=== PATIENT | female | born 1970 | race Caucasian/White ===

== ENCOUNTER → 2020-08-02 16:09 | Outpatient (BNVA) | payer OTHER, SELFPAY | PROVIDERS: PCP Physician Assistant; Referring Provider Physician Assistant; Visit Provider Nurse Practitioner | DX: K58.2 Mixed irritable bowel syndrome (principal); K51.20 Ulcerative (chronic) proctitis without complications; K22.70 Barrett's esophagus without dysplasia; R11.2 Nausea with vomiting, unspecified; Z79.899 Other long term (current) drug therapy; Z86.010 Personal history of colon polyps | CPT/HCPCS: 99212 ==

== ENCOUNTER → 2020-09-12 11:51 | Outpatient (BNVA) | payer OTHER, SELFPAY | PROVIDERS: PCP Physician Assistant; Visit Provider Nurse Practitioner | DX: Z76.89 Persons encountering health services in other specified circumstances (principal) ==

== ENCOUNTER 2020-09-16 15:47 | Emergency (ER) | payer OTHER, SELFPAY ==
[2020-09-16 17:36] VITALS: BP 122/88; PULSE 133; RESP 17; TEMP 36.9; O2SAT 95; BMI 26.4
--- NOTE | 2020-09-16 17:47 | ED_ITS ---
HPI - General Adult General Chief complaint: General Medical Stated complaint: MULTIPLE COMPLAINTS Time Seen by Provider: 09/16/20 18:57 Source: patient Mode of arrival: ambulatory Limitations: no limitations History of Present Illness HPI narrative: 50-year-old female presents with multiple complaints, has a history of Samuels's, ulcerative proctitis, IBS with constipation and diarrhea presents with left-sided headache and a shooting nerve pain, left ear pain, and anxiety. She has had similar episodes of this particular kind of pain, states that the only thing that works for her is prednisone and amoxicillin. She is very anxious, she believes that she is concerned about deep inner ear infection or abscess. She does have an ENT in [facility], has not been able to see them due to COVID-19 restrictions. She does not report any fevers, chills, loss of balance, changes in vision, loss of hearing, chest pain or pressure, palpitations, shortness of breath, abdominal pain, abdominal distention, dysuria, hematuria, or edema. Onset (ago): week(s) Location: head and face Radiation: other (Radiates from her head, left eye, left ear, left neck) Severity: severe Severity scale (1-10): 10 Quality: burning, aching and constant Pain Consistency: constant Relieving factors: none Associated symptoms: denies other symptoms Treatments prior to arrival: NSAID Related Data Home Medications Medication Instructions Recorded Confirmed sucralfate 1 gram tablet 2 g PO .Q.d. tab 08/01/20 08/01/20 bupropion HCl 100 mg tablet,12 hr 100 mg PO QAM 09/04/20 sustained-release clonazepam 1 mg tablet 1 mg PO BEDTIME PRN 09/04/20 promethazine 25 mg tablet mg PO 09/04/20 propranolol 60 mg capsule,24 60 mg PO DAILY 09/04/20 hr,extended release Previous Rx's Medication Instructions Recorded ondansetron HCl 4 mg tablet 4 mg PO BID-TID PRN 30 Days #60 tab 08/02/20 pantoprazole 40 mg tablet,delayed 40 mg PO BID 90 Days #180 tab 08/02/20 release amoxicillin 500 mg capsule 500 mg PO Q8H 7 Days #21 cap 08/20/20 ofloxacin 0.3 % ear drops 10 drp OTIC (EARS) BID 14 Days #10 12/01/20 ml prednisone 10 mg tablet 10 mg PO DAILY 9 Days #18 tab 09/04/20 amoxicillin-pot clavulanate 1 tab PO Q12H 5 Days #10 tab 09/16/20 [Augmentin] prednisone 40 mg PO DAILY 6 Days #12 tab 09/16/20 Allergies Allergy/AdvReac Type Severity Reaction Status Date / Time Sulfa (Sulfonamide Allergy Unknown COLITIS, Verified 09/12/20 11:52 Antibiotics) stomach [SULFA (SULFONAMIDE upset, ANTIBIOTICS)] stomach upset lorazepam [From ATIVAN] AdvReac Unknown AGITATION Verified 09/12/20 11:52 Review of Systems Review of Systems: Constitutional: No Fever, No Chills ENT/Mouth: Positive left Ear Pain, No Hoarseness, No sore throat Eyes: Positive left Eye Pain, No Swelling, No Redness, No Foreign Body Cardiovascular: No Chest Pain, No SOB Respiratory: No Cough, No Dyspnea Gastrointestinal: No Nausea, No Vomiting, No Diarrhea, No abdominal Pain Genitourinary: No Dysuria, No Hematuria Musculoskeletal: positive left neck pain, No Myalgias, No Joint Swelling Skin: No Skin lacerations, No rash Neuro: No Weakness, No Numbness, No Paresthesias, No Loss of Consciousness, No Dizziness, No Headache Psych: Positive Anxiety/Panic, No Depression Heme/Lymph: no easy bruising, no Lymphadenopathy Endocrine: No Polyuria, No Polydipsia Yes all other systems are reviewed and are negative [facility] Past Medical History Attestation statement: The following information was validated with the patient. Medical History (Updated 09/16/20 @ 19:32 by Kaci Roman NP) GERD (gastroesophageal reflux disease) Surgical History History of esophagogastroduodenoscopy (EGD) Hx of colonoscopy Family History Family History Father Hernia Mother Blood infection Hernia Sister Hernia Social History Social History Household Members: Other Housing: Apartment Alcohol intake: current Alcohol intake frequency: holidays/special occasions only Alcohol type: wine Smoking Status: Light tobacco smoker Tobacco Type: E-Cigarette Use of substances other than those prescribed or required for medical reasons: No Substance Use Type: Marijuana Advance Directives: No Advance Directives Information Provided: No Physical Exam Vital Signs: Vital Signs: Last Vital Signs Temp 98.4 F 09/16/20 17:36 Pulse 133 H 09/16/20 17:36 Resp 17 09/16/20 17:36 BP 122/88 09/16/20 17:36 Pulse Ox 95 09/16/20 17:36 Body Mass Index 26.4 Appearance: Alert. Oriented X3. No acute distress. Eyes: Pupils equal, round and reactive to light. ENT: Pharynx normal. Neck: Normal inspection. Neck supple. CVS: Normal heart rate and rhythm. Pulses normal. Respiratory: No respiratory distress. Breath sounds normal. Abdomen: Soft and nontender. Skin: Skin warm and dry. Normal skin color. Normal skin turgor. Extremities: No lower extremity edema. Neuro: No motor deficit. No sensory deficit. NIH Stroke Scale Level of Consciousness: Alert Level of Consciousness Questions: Answers both questions correctly Level of Consciousness Commands: Performs both tasks correctly Best Gaze: Normal Visual: No visual loss Facial Palsy: Normal Motor Arm (Right): No drift Motor Arm (Left): No drift Motor Leg (Right): No drift Motor Leg (Left): No drift Limb Ataxia: Absent Sensory: Normal Best Language: No aphasia Dysarthia: Normal Extinction and Inattention: No abnormality Score: 0 Course Course Course Narrative: 50-year-old female presents with left-sided headache, left eye pain, left neck pain, left ear pain, visibly anxious, speaking in abrupt manner, needs multiple redirections to answer the questions at hand. Does report to smoking cigarettes and drinking several nips of whiskey prior to arrival. Patient does not want any medications, reports multiple sensitivities to almost everything on the market , does not want blood drawn at this time because she is getting blood drawn by her paper sales representative on Thursday. We will order CT scan of the head, give prednisone and Augmentin. CT scan of head is negative for acute findings requiring emergent intervention, patient demanding to leave at this time. Patient verbalized understanding of and agrees to plan of care to discharge home. Medical Decision Making Differential Diagnosis Differential Diagnosis: Acute otitis media, trigeminal neuralgia, migraine Medical Records Medical records reviewed: Yes I reviewed the patient's medical records. Imaging Data CT scan - head: Attestation: I personally reviewed and interpreted this imaging study as follows: Radiologist's impression: EXAMINATION: CT HEAD WITHOUT CONTRAST CLINICAL INFORMATION: Head and left ear pain. COMPARISON: None TECHNIQUE: Contiguous axial imaging was performed from the skull base to vertex without intravenous administration of contrast. This CT examination was performed using dose optimization techniques as appropriate, variously including the following: *Automated exposure control *Adjustment of mA and/or kV according to patient size (this includes techniques or standardized protocols for targeted exams where dose is matched to indication/reason for exam; i.e. extremities or head) *Use of iterative reconstruction technique DLP: 679 mGy-cm FINDINGS: There is no evidence of acute intracranial hemorrhage or territorial infarction. No abnormal mass effect or midline shift is seen. Whitaker to white matter differentiation is well preserved. No extra-axial fluid collections are identified. The ventricles are normal in size. There is no abnormal attenuation within the brain parenchyma. The osseous structures and soft tissues are normal. The mastoid air cells and visualized portions of the paranasal sinuses are well aerated. CT/CT head/brain wo con IMPRESSION: No acute intracranial hemorrhage or mass effect. Discharge Plan Discharge Clinical Impression: Otitis media Qualifiers: Otitis media type: unspecified Chronicity: chronic Qualified Code(s): H66.90 - Otitis media, unspecified, unspecified ear Patient Disposition: Home, Self-Care Instructions: Ear Infection (ED) Additional Instructions: You were evaluated for headache and ear pain. Your CT scan of the head is negative for acute findings requiring emergent intervention. We are treating you for an ear infection. Please follow-up the primary care physician and your paper sales representative as scheduled. Thank you for choosing this emergency department for evaluation. Please follow-up with primary care physician as needed. Return to the emergency department for any new, concerning, or worsening symptoms. Prescriptions: New prednisone 20 mg tablet 40 mg PO DAILY 6 Days Qty: 12 RF: 0 amoxicillin-pot clavulanate [Augmentin] 875-125 mg tablet 1 tab PO Q12H 5 Days Qty: 10 RF: 0 No Action amoxicillin 500 mg capsule 500 mg PO Q8H 7 Days Qty: 21 RF: 0 ofloxacin 0.3 % drops 10 drp otic (ears) BID 14 Days Qty: 10 RF: 0 prednisone 10 mg tablet 10 mg PO DAILY 9 Days Qty: 18 RF: 0 sucralfate [Carafate] 1 gram tablet 2 g PO .Q.d. RF: 0 pantoprazole 40 mg tablet,delayed release (DR/EC) 40 mg PO BID 90 Days Qty: 180 RF: 1 ondansetron HCl [Zofran] 4 mg tablet 4 mg PO BID-TID PRN (Reason: nausea and vomiting) 30 Days Qty: 60 RF: 3 Interventions: ED Discharge Assessment Last Done: 09/16/20 19:40 Discharge Date/Time: 09/16/20 19:40
[2020-09-16] MEDS: Amoxicillin/Potassium Clav 875 MG TABLET PO (18:12)
[2020-09-16] MEDS: predniSONE 20 MG TABLET 60 MG PO (18:13)
== END 2020-09-16 19:40 | disposition home or self-care (01) ==
PROVIDERS: Emergency Provider Internal Medicine; PCP Physician Assistant
DX: H66.92 Otitis media, unspecified, left ear (principal); M54.2 Cervicalgia; F17.200 Nicotine dependence, unspecified, uncomplicated; Z79.899 Other long term (current) drug therapy; Z71.6 Tobacco abuse counseling
CPT/HCPCS: 70450; 99283; 99284

== ENCOUNTER → 2020-11-26 14:53 | Outpatient (BNVA) | payer OTHER, SELFPAY | PROVIDERS: PCP Physician Assistant; Visit Provider Nurse Practitioner ==

== ENCOUNTER 2021-02-05 09:20 | Outpatient (REF) | payer OTHER, SELFPAY ==
[2021-02-05 15:43] LABS: CT PCR NOT DETECTED (Not Detect.); NG PCR NOT DETECTED (Not Detect.)
[2021-02-06 11:11] LABS: BV Int Neg Control Negative (Negative); BV Int Pos Control Positive (Positive)
== END 2021-02-05 09:21 | disposition home or self-care (01) ==
LOC: HO.LAB 09:20
PROVIDERS: PCP Physician Assistant; Visit Provider Advanced Practice Midwife
DX: Z11.3 Encounter for screening for infections with a predominantly sexual mode of transmission (principal); R10.2 Pelvic and perineal pain
CPT/HCPCS: 81003; 87480; 87491; 87510; 87591; 87660; 99212

== ENCOUNTER 2021-02-14 14:59 | Outpatient (REF) | payer OTHER, SELFPAY ==
--- NOTE | ~2021-02-14 | US_ITS ---
EXAMINATION: PELVIC ULTRASOUND CLINICAL INFORMATION: Pain. History of left oophorectomy COMPARISON: Previous CT of the abdomen and pelvis August 2017 TECHNIQUE: Transabdominal and transvaginal pelvic ultrasound. Transvaginal exam was performed for better visualization of the uterus and ovaries. FINDINGS: The uterus is anteverted and measures 5.8 x 2.2 x 3.7 cm in dimension. No focal uterine lesion is seen. Endometrial thickness is normal measuring 0.4 cm. There is a nabothian cyst in the cervix. The right ovary is normal-appearing and measures 2.3 x 1 x 1.4 cm. Left ovary has been removed. There is trace fluid in the pelvis. Additional imaging of the right upper quadrant was performed. Migrated IUD is seen adjacent to the right lobe of the liver and right kidney. US/US pelvic and transvaginal IMPRESSION: Unremarkable uterus and right ovary. IUD seen in the right upper quadrant adjacent to the right lobe of the liver and right kidney.
[2021-02-21 07:49] LABS: Prometheus TPMT Genetics SEE SEPARATE REPORT
== END 2021-02-14 15:00 | disposition home or self-care (01) ==
LOC: HO.US 14:59
PROVIDERS: Nurse Practitioner; Visit Provider Advanced Practice Midwife
DX: R10.2 Pelvic and perineal pain (principal); K51.20 Ulcerative (chronic) proctitis without complications
CPT/HCPCS: 36415; 76830; 76856; 81335

== ENCOUNTER → 2021-02-20 12:17 | Outpatient (BNVA) | payer OTHER, SELFPAY | PROVIDERS: Visit Provider Advanced Practice Midwife ==

== ENCOUNTER 2021-03-14 11:23 | Outpatient (REF) | payer OTHER, SELFPAY ==
--- NOTE | ~2021-03-14 | MM_ITS ---
EXAMINATION: MM SCREENING DIGITAL BREAST TOMOSYNTHESIS, BILATERAL CLINICAL INFORMATION: Screening. Asymptomatic. The lifetime risk of breast cancer based on the Tyrer-Cuzick Model is 6.9%. COMPARISON: Mammography: Bilateral TECHNIQUE: Digital breast tomosynthesis is performed in both the craniocaudal and mediolateral oblique views along with computer-aided detection (CAD). Synthesized 2D images are generated from the tomosynthesis. FINDINGS: There are scattered areas of fibroglandular density (ACR BI-RADS breast composition Category b). There are no significant masses, abnormal calcifications, or other abnormalities. MM/MM tomosynthesis screening BI IMPRESSION: There are no significant changes from prior study. ASSESSMENT: BI-RADS 1: Negative RECOMMENDATION: Routine annual mammography screening. This patient's information was entered into a reminder system with a target due date for their next mammogram.
== END 2021-03-14 11:24 | disposition home or self-care (01) ==
LOC: HO.MAMMO 11:23
PROVIDERS: Visit Provider Physician Assistant
DX: R55 Syncope and collapse (principal); R00.0 Tachycardia, unspecified; Z12.31 Encounter for screening mammogram for malignant neoplasm of breast
CPT/HCPCS: 77063; 77067; 93005; 99212

== ENCOUNTER → 2021-03-26 11:34 | Outpatient (BNVA) | payer OTHER, SELFPAY | PROVIDERS: PCP Physician Assistant; Visit Provider Nurse Practitioner ==

== ENCOUNTER → 2021-04-17 14:07 | Outpatient (BNVA) | payer OTHER, SELFPAY | PROVIDERS: PCP Physician Assistant; Visit Provider Anesthesiology | DX: G50.0 Trigeminal neuralgia (principal) | CPT/HCPCS: 99202 ==

== ENCOUNTER 2021-04-26 15:00 | Outpatient (REF) | payer OTHER, SELFPAY ==
[2021-04-26 16:00] LABS: Hematocrit 46.2 % (37-47); Hemoglobin 15.6 g/dl (12.0-16.0); Mean Corpuscular HGB Conc 33.8 g/dl (31.0-35.0); Mean Corpuscular Hemoglobin 33.1 pg (27.0-33.0); Mean Corpuscular Volume 97.9 fL (80-98); Mean Platelet Volume 9.7 fL (9.4-12.3); Platelet Count 292 X10*3/uL (160-400); Red Blood Count 4.72 X10*6/uL (4.20-5.50); Red Cell Distribution Width 12.7 % (11.0-16.0); White Blood Count 5.1 X10*3/uL (4.8-10.8)
[2021-04-26 16:13] LABS: Alanine Aminotransferase 13 U/L (0-31); Albumin Level 4.3 g/dL (3.5-5.0); Alkaline Phosphatase 89 U/L (39-117); Anion Gap 15 (12-20); Aspartate Amino Transferase 19 U/L (5-31); Bilirubin Total 0.4 mg/dL (0.0-1.0); Blood Urea Nitrogen 11 mg/dL (9-16); Calcium 9.2 mg/dL (8.4-10.2); Carbon Dioxide 25 mmol/L (22-29); Chloride 104 mmol/L (96-108); Cholesterol 301 mg/dL; Estimated Glomerular Filt Rate > 60; Glucose Fasting 100 mg/dL (60-99); HDL Cholesterol 70 mg/dL; LDL Cholesterol Calculated 213 mg/dl; Potassium 4.2 mmol/L (3.3-5.1); Sodium 140 mmol/L (135-145); Triglycerides 91 mg/dL
[2021-04-26 16:33] LABS: TSH reflex Free T4 1.87 uIU/mL (0.32-4.0)
== END 2021-04-26 15:01 | disposition home or self-care (01) ==
LOC: HO.LAB 15:00
PROVIDERS: Absent Provider Physician Assistant; PCP Physician Assistant; Visit Provider Nurse Practitioner
DX: Z13.29 Encounter for screening for other suspected endocrine disorder (principal); K51.20 Ulcerative (chronic) proctitis without complications; G50.0 Trigeminal neuralgia; I10 Essential (primary) hypertension
CPT/HCPCS: 36415; 80053; 80061; 80299; 84443; 85027

== ENCOUNTER → 2021-05-13 10:14 | Outpatient (BNVA) | payer OTHER, SELFPAY | PROVIDERS: PCP Physician Assistant; Visit Provider Nurse Practitioner ==

== ENCOUNTER → 2021-07-30 09:05 | Outpatient (BNVA) | payer OTHER, SELFPAY | PROVIDERS: PCP Physician Assistant; Visit Provider Dietitian, Registered | DX: E78.5 Hyperlipidemia, unspecified (principal) | CPT/HCPCS: 97802 ==

== ENCOUNTER 2021-08-20 11:35 | Outpatient (REF) | payer OTHER, SELFPAY ==
[2021-08-27 06:29] LABS: Prometheus TPMT Enzyme SEE SEPARATE REPORT
== END 2021-08-20 11:36 | disposition home or self-care (01) ==
LOC: HO.LAB 11:35
PROVIDERS: PCP Physician Assistant; Visit Provider Nurse Practitioner
DX: K51.20 Ulcerative (chronic) proctitis without complications (principal)
CPT/HCPCS: 36415

== ENCOUNTER → 2021-08-27 15:58 | Outpatient (BNVA) | payer OTHER, SELFPAY | PROVIDERS: PCP Physician Assistant; Referring Provider Physician Assistant; Visit Provider Nurse Practitioner ==

== ENCOUNTER 2021-11-06 14:51 | Outpatient (REF) | payer OTHER, SELFPAY ==
--- NOTE | ~2021-11-06 | XR_ITS ---
EXAMINATION: XR HIP, LEFT CLINICAL INFORMATION: Pain. COMPARISON: None TECHNIQUE: Two views of the left hip. FINDINGS: The left hip joint space is maintained normal. No bony erosive changes. There are no loose bodies. There are small intramedullary sclerotic densities along left proximal femur. The soft tissues are normal. XR/XR hip LT min 2V IMPRESSION: No acute fracture or dislocation left hip. Sclerotic densities seen a left proximal femur. Sclerotic density is also seen in the pelvis, right proximal femur on CT abdomen abdomen exam 12/19/2019, question multiple bone islands versus metastatic disease. Recommend bone scan for further evaluation..
[2021-11-06 15:55] LABS: Hematocrit 44.9 % (37.0-47.0); Hemoglobin 15.3 g/dl (12.0-16.0); Mean Corpuscular HGB Conc 34.1 g/dl (31.0-35.0); Mean Corpuscular Hemoglobin 31.9 pg (27.0-33.0); Mean Corpuscular Volume 93.5 fL (80.0-98.0); Mean Platelet Volume 9.7 fL (9.4-12.3); Platelet Count 306 X10*3/uL (160-400); Red Cell Distribution Width 13.9 % (11.0-16.0); White Blood Count 6.2 X10*3/uL (4.8-10.8)
[2021-11-06 15:59] LABS: Estimated Average Glucose 94 mg/dL; Hemoglobin A1c % 4.9 %
[2021-11-06 16:13] LABS: Alanine Aminotransferase 8 U/L (0-31); Albumin Level 4.4 g/dL (3.5-5.0); Alkaline Phosphatase 72 U/L (39-117); Anion Gap 12 (12-20); Aspartate Amino Transferase 12 U/L (5-31); Bilirubin Total 0.7 mg/dL (0.0-1.0); Blood Urea Nitrogen 17 mg/dL (9-16); Calcium 9.8 mg/dL (8.4-10.2); Carbon Dioxide 28 mmol/L (22-29); Chloride 105 mmol/L (96-108); Cholesterol 269 mg/dL; Estimated Glomerular Filt Rate > 60; Glucose Fasting 108 mg/dL (60-99); HDL Cholesterol 45 mg/dL; LDL Cholesterol Calculated 193 mg/dl; Sodium 141 mmol/L (135-145); Triglycerides 157 mg/dL
[2021-11-06 16:33] LABS: TSH reflex Free T4 1.79 uIU/mL (0.32-4.0)
[2021-11-06 16:42] LABS: Carbamazepine Tegretol 9.2 mcg/mL (5.0-12.0)
== END 2021-11-06 14:52 | disposition home or self-care (01) ==
LOC: HO.XRAY 14:51
PROVIDERS: Absent Provider Nurse Practitioner; PCP Physician Assistant; Visit Provider Physician Assistant
DX: Z13.29 Encounter for screening for other suspected endocrine disorder (principal); G50.0 Trigeminal neuralgia; E78.2 Mixed hyperlipidemia; M25.552 Pain in left hip
CPT/HCPCS: 36415; 73502; 80053; 80061; 80156; 83036; 84443; 85027

== ENCOUNTER → 2021-11-14 07:48 | Outpatient (BNVA) | payer OTHER, SELFPAY | PROVIDERS: PCP Physician Assistant; Referring Provider Physician Assistant; Visit Provider Nurse Practitioner | DX: K58.2 Mixed irritable bowel syndrome (principal); K51.20 Ulcerative (chronic) proctitis without complications; K22.70 Barrett's esophagus without dysplasia; R11.2 Nausea with vomiting, unspecified | CPT/HCPCS: 99212 ==

== ENCOUNTER → 2021-11-22 11:01 | Outpatient (REF) | payer OTHER, SELFPAY ==
--- NOTE | ~2021-11-22 | NM_ITS ---
EXAMINATION: NM BONE SCAN OF THE WHOLE BODY CLINICAL INFORMATION: Disorder of bone, unspecified. Sclerotic density seen in the pelvis and proximal left femur on recent radiographs. COMPARISON: No previous bone scan is available for comparison. Radiographs of the left hip dated 11/06/2021 are available for comparison. The diagnostic CT scan of the abdomen and pelvis, dated 09/03/2017, is available for comparison. CT scan of the head dated 09/16/2020 is also available for comparison. TECHNIQUE: Multiple gamma scintillation camera images of the whole body were performed 11/21/2021 hours following the intravenous administration of 20 mCi Tc-99m MDP. FINDINGS: In the head, there is a mild diffuse increase in activity in the calvarium without a focal component. In the thoracic cage and upper extremities, faint foci of increased activity are present in the posterolateral aspects of adjacent regions of the right ninth and 10th ribs in the anterolateral aspect of the right seventh rib. In the spine, a mild thoracolumbar scoliosis is present with lumbar convexity to the left. There is mildly increased activity bilaterally in the posterior elements at L4-L5. In the pelvis, no significant abnormalities are present. In the lower extremities, there is mildly increased activity in the medial compartment of the right knee and there is minimally increased activity in the left greater femoral trochanter. No other definite bony abnormalities are noted. The urinary bladder and faint visualization of both kidneys are noted. Radiographs of the left hip dated 11/06/2021 show several sclerotic foci in the proximal shaft of the left femur and in addition, the CT scan dated 12/19/2019 which is not extend inferiorly to the previously described radiographic sclerotic foci shows additional sclerotic foci in the proximal right femur and in multiple foci in the pelvis, all subcentimeter in size. There are no corresponding abnormalities on this current radionuclide bone scan at any of these sites. There is also mild facet arthropathy at L4-L5 corresponds to bone scan abnormalities described above. NM/NM bone scan whole body IMPRESSION: 1. No abnormalities suspicious for metastatic disease are present on this bone scan. There are no corresponding abnormalities in the femurs or pelvis to sclerotic foci visualized on recent radiographs and 12/19/2019 CT scan of the abdomen and pelvis. 2. There is some mild diffusely increased activity in the calvarium which suggests early Paget's disease of bone. There are no abnormalities in the calvarium on the 09/16/2020 PET/CT scan to suggest Paget's disease, however. No other abnormalities suspicious for Paget's disease are present at any site. 3. A few additional mild nonspecific abnormalities are noted as described above and these are all likely arthritic or traumatic in etiology. None of these abnormalities is strongly suspicious for metastatic disease.
== END ==
LOC: HO.NUCMED 11:01
PROVIDERS: PCP Physician Assistant; Visit Provider Physician Assistant
DX: M89.9 Disorder of bone, unspecified (principal)
CPT/HCPCS: 78306; A9503

== ENCOUNTER → 2021-12-05 07:16 | Outpatient (BNVA) | payer OTHER, SELFPAY | PROVIDERS: PCP Physician Assistant; Referring Provider Physician Assistant; Visit Provider Nurse Practitioner | DX: K51.20 Ulcerative (chronic) proctitis without complications (principal); K58.2 Mixed irritable bowel syndrome; K30 Functional dyspepsia; R11.2 Nausea with vomiting, unspecified | CPT/HCPCS: 99212 ==

== ENCOUNTER 2021-12-06 13:59 | Outpatient (REF) | payer OTHER, SELFPAY ==
[2021-12-10 15:36] LABS: Alkaline Phosphatase Bone 12.2 mcg/L (5.6-29.0)
[2021-12-11 09:20] LABS: Calcium (PTHI) 9.4 mg/dL (8.6-10.4); PTHI 50 pg/mL (14-64)
== END 2021-12-06 14:00 | disposition home or self-care (01) ==
LOC: HO.LAB 13:59
PROVIDERS: Nurse Practitioner; PCP Physician Assistant; Visit Provider Physician Assistant
DX: M89.9 Disorder of bone, unspecified (principal); K51.20 Ulcerative (chronic) proctitis without complications; Z79.899 Other long term (current) drug therapy
CPT/HCPCS: 36415; 80299; 83970; 84075

== ENCOUNTER 2021-12-10 14:33 | Outpatient (REF) | payer OTHER, SELFPAY ==
--- NOTE | ~2021-12-10 | US_ITS ---
EXAMINATION: US ABDOMEN COMPLETE CLINICAL INFORMATION: Displacement of intrauterine contraceptive device. Right upper quadrant pain. COMPARISON: Pelvic ultrasound 02/14/2021. CT abdomen and pelvis 12/19/2019. TECHNIQUE: Real-time imaging of the abdominal viscera. FINDINGS: PANCREAS: Normal. ABDOMINAL AORTA: The proximal, mid, and distal segments are normal in caliber. INFERIOR VENA CAVA: Visualized portions are normal. LIVER: Normal. The liver is normal in size. The liver contour is normal. Parenchymal echogenicity is normal. No focal hepatic lesion. There is no intrahepatic biliary duct dilatation seen. GALLBLADDER: The gallbladder is mildly contracted, likely due to the patient's nonfasting state. The gallbladder is without evidence of stones, sludge, polyps, wall thickening or pericholecystic fluid. COMMON BILE DUCT: Normal in caliber measuring 0.4 cm in diameter. RIGHT KIDNEY: Normal. No hydronephrosis. No renal calculi or focal parenchymal lesions. The kidney measures 10.2 cm in maximum dimension. LEFT KIDNEY: There is a simple appearing exophytic cyst in the upper pole measuring 2.2 cm. There is a simple appearing parapelvic cyst in the mid polar region measuring 2.8 cm No hydronephrosis or renal calculi. The kidney measures 10.8 cm in maximum dimension. SPLEEN: Normal. The spleen measures 8.6 cm in maximum dimension. FREE FLUID: None. ADDITIONAL FINDINGS: The intrauterine device is again demonstrated in the mesenteric fat of the right upper quadrant, likely in a similar location as seen on the prior CT. US/US abdomen complete IMPRESSION: Intrauterine device is again demonstrated in the mesenteric fat of the right upper quadrant, likely in a similar location as the prior CT. Simple cysts of the left kidney, for which no further follow-up is necessary.
== END 2021-12-10 14:34 | disposition home or self-care (01) ==
LOC: HO.US 14:33
PROVIDERS: PCP Physician Assistant; Visit Provider Physician Assistant
DX: R10.11 Right upper quadrant pain (principal); T83.32XD Displacement of intrauterine contraceptive device, subsequent encounter
CPT/HCPCS: 76700

== ENCOUNTER → 2021-12-16 15:33 | Outpatient (BNVA) | payer OTHER, SELFPAY | PROVIDERS: PCP Physician Assistant; Visit Provider Advanced Practice Midwife | DX: T83.32XA Displacement of intrauterine contraceptive device, initial encounter (principal); Z30.431 Encounter for routine checking of intrauterine contraceptive device | CPT/HCPCS: Q3014 ==

== ENCOUNTER 2021-12-27 14:00 | Outpatient (RCR) | payer OTHER, SELFPAY ==
--- NOTE | 2021-12-06 15:32 | MHC.PT.EP ---
[facility] [place] Office [place] Office [place] Office [address] [phone] F: [phone] F: [phone] F: [phone] F: [phone] Physical Therapy Plan of Care Date of Evaluation: Date of Surgery: NA Diagnosis: PAIN IN L HIP Assessment: Pt IS 51 YO F REFERRED TO PT FROM [facility] WITH L HIP PAIN. REPORTS INSIDIOUS ONSET OVER 1 YEAR AGO. Pt REPORTS HAS RECENTLY TRIED BARRE CLASS WITH DIFFICULTY COMPLETING BECAUSE OF HIP PAIN. REPORTS HAS SOME TROUBLE WITH R KNEE AND LB ALSO. HAS TAUGHT PILATES IN PAST. PRESENTS WITH GOOD HIP FLEXIBLITY WITH SOME DECREASED STRENGTH/STABILITY. SHOULD BENEFIT FROM PT TO ADDRESS THESE ISSUES. OF NOTE, Pt WOULD LIKE TO HAVE JUST A FEW PT SESSIONS FOR HOME PROGRAM Frequency and Duration: The patient will be seen 1X/WK X3-4 WKS Short Term Goals: 1. INCREASED AWARENESS HIP/LB CARE 2. Pt TO PERF 2-3 TASKS WITH PROPER BODY MECH\ 3. 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 I HEP WITH DC EX PLAN 2. DECREASED HIP PAIN AT LEAST 50% WITH ADLS 3. IMPROVED LEFI Treatment Plan: Modalities to reduce pain, spasms and effusion. Manual therapy to restore motion and function. Therapeutic exercise to improve strength and flexibility. Neuromuscular re-education for posture and balance. Therapeutic activities to return to functional activities of daily living. Electronically signed by: JUAN DUNBAR PT Please sign and return to therapist. Thank you for your referral.
--- NOTE | 2022-02-03 09:48 | MHC.PT.DC ---
[facility] [place] Office [place] Office [place] Office [address] [phone] F: [phone] F: [phone] F: [phone] F: [phone] Physical Therapy Discharge Report Diagnosis: PAIN IN L HIP Date of Surgery: NA Date of Evaluation: 12/06/21 Date of Discharge: 02/03/22 Treatments to Date: 3 Cancellations to Date: 2 No Shows to Date: Discharge Status: Patient Elected to Stop Recommend MD Follow-up Discharge Summary: Pt LAST SEEN ON 12/27 WITH ASSESSMENT CHALLENGED WITH STEP UPS WITH L LEADING, Pt REPORTS MULTIPLE EPISODES OF FALLING ON STAIRS . PLAN WAS TO CONTINUE PT BUT Pt CANCELLED LAST APPT ON 01/10/22 WITH NOTE THAT WOULD CALL TO RESCHEDULE (BUT DIDNT). HAS HEP Electronically signed by: JUAN DUNBAR PT Please sign and return to therapist. Thank you for your referral.
== END 2022-02-03 09:48 | disposition home or self-care (01) ==
LOC: HO.PT 14:00
PROVIDERS: PCP Physician Assistant; Visit Provider Physician Assistant
DX: M25.552 Pain in left hip (principal)
CPT/HCPCS: 97110; 97161; 97530; 97535

== ENCOUNTER 2022-01-29 12:37 | Outpatient (REF) | payer OTHER, SELFPAY ==
[2022-01-29 13:23] LABS: Hematocrit 44.4 % (37.0-47.0); Hemoglobin 15.5 g/dl (12.0-16.0); Mean Corpuscular HGB Conc 34.9 g/dl (31.0-35.0); Mean Corpuscular Hemoglobin 33.1 pg (27.0-33.0); Mean Corpuscular Volume 94.9 fL (80.0-98.0); Mean Platelet Volume 9.4 fL (9.4-12.3); Platelet Count 305 X10*3/uL (160-400); Red Blood Count 4.68 X10*6/uL (4.20-5.50); Red Cell Distribution Width 14.9 % (11.0-16.0); White Blood Count 6.4 X10*3/uL (4.8-10.8)
[2022-01-29 14:19] LABS: Alanine Aminotransferase 11 U/L (0-31); Albumin Level 4.3 g/dL (3.5-5.0); Alkaline Phosphatase 80 U/L (39-117); Anion Gap 18 (12-20); Aspartate Amino Transferase 21 U/L (5-31); Bilirubin Total 1.2 mg/dL (0.0-1.0); Blood Urea Nitrogen 12 mg/dL (9-16); Calcium 10.2 mg/dL (8.4-10.2); Carbon Dioxide 27 mmol/L (22-29); Chloride 102 mmol/L (96-108); Cholesterol 264 mg/dL; Estimated Glomerular Filt Rate > 60; Glucose Fasting 89 mg/dL (60-99); HDL Cholesterol 89 mg/dL; LDL Cholesterol Calculated 146 mg/dl; Potassium 4.6 mmol/L (3.3-5.1); Sodium 142 mmol/L (135-145); Total Protein 6.7 g/dL (6.5-8.0); Triglycerides 146 mg/dL
== END 2022-01-29 12:38 | disposition home or self-care (01) ==
LOC: HO.LAB 12:37
PROVIDERS: PCP Physician Assistant; Visit Provider Physician Assistant
DX: K22.70 Barrett's esophagus without dysplasia (principal); K51.20 Ulcerative (chronic) proctitis without complications; F41.1 Generalized anxiety disorder; E78.2 Mixed hyperlipidemia
CPT/HCPCS: 36415; 80053; 80061; 85027; 99202

== ENCOUNTER 2022-02-25 15:30 | Outpatient (REF) | payer OTHER, SELFPAY ==
--- NOTE | ~2022-02-25 | CT_ITS ---
EXAMINATION: CT ABDOMEN AND PELVIS WITHOUT CONTRAST CLINICAL INFORMATION: Displacement of intrauterine contraceptive device. COMPARISON: None TECHNIQUE: Multidetector volumetric imaging was performed from the superior aspect of the liver through the pubic symphysis. Sagittal and coronal reformatted images were obtained on the technologist's workstation. This CT examination was performed using dose optimization techniques as appropriate, variously including the following: *Automated exposure control *Adjustment of mA and/or kV according to patient size (this includes techniques or standardized protocols for targeted exams where dose is matched to indication/reason for exam; i.e. extremities or head) *Use of iterative reconstruction technique DLP: 237 mGy-cm FINDINGS: LUNG BASES: The visualized lung bases are unremarkable. The heart size is normal. LIVER, GALLBLADDER, AND BILIARY TREE: The liver is normal in size, shape, and attenuation. No focal hepatic lesion or biliary ductal dilatation is present. The gallbladder is unremarkable with no evidence of radiopaque gallstones, gallbladder wall thickening, or obvious pericholecystic inflammatory changes. PANCREAS: Unremarkable. SPLEEN: Unremarkable. ADRENAL GLANDS: Unremarkable. KIDNEYS AND URETERS: The kidneys are normal in size, shape, and attenuation. There are punctate 1-2 mm radiopaque several calculi in the upper pole right kidney and 2 mm calculi upper pole left kidney without caliectasis. There are small parapelvic cysts and exophytic cyst medial cortex upper pole left kidney as seen on recent ultrasound 12/11/2021. No hydronephrosis seen. BLADDER: The bladder is nondistended with 5 mm bladder wall thickening. GASTROINTESTINAL TRACT: There is scattered stool and gas seen throughout the colon without any significant distention. The small bowel loops are normal caliber. No free fluid or free air seen. There is an IUD within the right mid abdomen anterior to the right kidney. It was in the right lateral mid abdomen region on the previous exam and has migrated medially. ABDOMINAL WALL: No significant hernia is appreciated. LYMPH NODES: Normal. VASCULAR: Unremarkable. PELVIC VISCERA: Unremarkable. OSSEOUS STRUCTURES: Mild degenerative disc changes L2-L3 and T12-L1 disc levels with mild ventral spondylosis noted. No aggressive lytic or sclerotic process seen. CT/CT abdomen pelvis wo con IMPRESSION: Nonobstructive bilateral radiopaque renal calculi. Left parapelvic and left upper pole exophytic cyst as seen on previous ultrasound. There is displaced IUD in the right mid abdomen anterior to kidneys. It has slightly migrated more medially from the lateral position on previous CT abdomen exam 12/19/2019. Fleischner guidelines were followed.
== END 2022-02-25 15:31 | disposition home or self-care (01) ==
LOC: HO.CT 15:30
PROVIDERS: Visit Provider Surgery
DX: T83.32XA Displacement of intrauterine contraceptive device, initial encounter (principal)
CPT/HCPCS: 74176

== ENCOUNTER → 2022-03-07 07:09 | Outpatient (BNVA) | payer OTHER, SELFPAY | PROVIDERS: PCP Physician Assistant; Referring Provider Physician Assistant; Visit Provider Nurse Practitioner | DX: K22.70 Barrett's esophagus without dysplasia (principal); K51.20 Ulcerative (chronic) proctitis without complications | CPT/HCPCS: 99212 ==

== ENCOUNTER → 2022-03-14 12:51 | Outpatient (BNVA) | payer OTHER, SELFPAY | PROVIDERS: PCP Physician Assistant; Visit Provider Surgery | DX: T83.32XA Displacement of intrauterine contraceptive device, initial encounter (principal); K30 Functional dyspepsia; F41.1 Generalized anxiety disorder; R10.11 Right upper quadrant pain; R11.2 Nausea with vomiting, unspecified; K58.2 Mixed irritable bowel syndrome; K51.20 Ulcerative (chronic) proctitis without complications | CPT/HCPCS: 99212 ==

== ENCOUNTER → 2022-03-17 14:35 | Outpatient (BNVA) | payer OTHER, SELFPAY | PROVIDERS: PCP Physician Assistant; Referring Provider Physician Assistant; Visit Provider Internal Medicine Cardiovascular Disease | DX: R00.0 Tachycardia, unspecified (principal); K21.9 Gastro-esophageal reflux disease without esophagitis; Z79.899 Other long term (current) drug therapy | CPT/HCPCS: 93005; 99212 ==

== ENCOUNTER → 2022-03-27 08:39 | Outpatient (BNVA) | payer OTHER, SELFPAY | PROVIDERS: PCP Physician Assistant; Visit Provider Surgery | DX: T83.32XA Displacement of intrauterine contraceptive device, initial encounter (principal); K30 Functional dyspepsia; K58.2 Mixed irritable bowel syndrome; K51.20 Ulcerative (chronic) proctitis without complications; R10.11 Right upper quadrant pain; F41.1 Generalized anxiety disorder; G50.9 Disorder of trigeminal nerve, unspecified; K21.9 Gastro-esophageal reflux disease without esophagitis; H92.02 Otalgia, left ear | CPT/HCPCS: 99212 ==

== ENCOUNTER 2022-04-04 15:25 | Outpatient (REF) | payer OTHER, SELFPAY ==
--- NOTE | ~2022-04-04 | MM_ITS ---
EXAMINATION: MM SCREENING DIGITAL BREAST TOMOSYNTHESIS, BILATERAL CLINICAL INFORMATION: Screening. Asymptomatic. The lifetime risk of breast cancer based on the Tyrer-Cuzick Model is 7%. COMPARISON: Mammography: 03/14/2021, 05/18/2019, 05/29/2017 TECHNIQUE: Digital breast tomosynthesis is performed in both the craniocaudal and mediolateral oblique views along with computer-aided detection (CAD). Synthesized 2D images are generated from the tomosynthesis. FINDINGS: The breasts are heterogeneously dense, which may obscure small masses (ACR BI-RADS breast composition Category c). Parenchymal pattern is similar to prior studies. Heterogeneously dense parenchyma areas in the anterior breasts. There is no developing density or interval mass or architectural abnormality. Again, there are scattered punctate calcifications in the bilateral anterior breasts. The axilla and skin contours are unremarkable. No significant changes from prior studies. MM/MM tomosynthesis screening BI IMPRESSION: No significant changes from prior exams. ASSESSMENT: BI-RADS 2: Benign RECOMMENDATION: Routine annual mammography screening. This patient's information was entered into a reminder system with a target due date for their next mammogram.
== END 2022-04-04 15:26 | disposition home or self-care (01) ==
LOC: HO.MAMMO 15:25
PROVIDERS: PCP Physician Assistant; Visit Provider Physician Assistant
DX: Z12.31 Encounter for screening mammogram for malignant neoplasm of breast (principal)
CPT/HCPCS: 77063; 77067

== ENCOUNTER → 2022-04-14 16:07 | Outpatient (BNVA) | payer OTHER, SELFPAY | PROVIDERS: Visit Provider Surgery | DX: T83.32XA Displacement of intrauterine contraceptive device, initial encounter (principal); F41.1 Generalized anxiety disorder | CPT/HCPCS: 99212 ==

== ENCOUNTER 2022-07-14 17:53 | Emergency (ER) | payer OTHER, SELFPAY ==
--- NOTE | ~2022-07-14 | XR_ITS ---
EXAMINATION: XR FOOT, LEFT CLINICAL INFORMATION: Pain. COMPARISON: None TECHNIQUE: 3 views of the left foot. FINDINGS: Oblique fracture of the distal shaft of the fifth metatarsal. Fracture slightly displaced. Fracture does not involve the articular surface of the bone. There is no dislocation. XR/XR foot LT 2V IMPRESSION: Oblique fracture of the distal shaft of the fifth metatarsal
[2022-07-14 18:23] VITALS: BP 105/76; PULSE 107; RESP 20; TEMP 36.6; O2SAT 95; BMI 20.4
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
== END 2022-07-14 21:28 | disposition home or self-care (01) ==
LOC: HO.ED 19:55
PROVIDERS: Emergency Provider Internal Medicine; PCP Physician Assistant
DX: S92.352A Displaced fracture of fifth metatarsal bone, left foot, initial encounter for closed fracture (principal); W22.03XA Walked into furniture, initial encounter; F17.290 Nicotine dependence, other tobacco product, uncomplicated; Y93.89 Activity, other specified; Y92.039 Unspecified place in apartment as the place of occurrence of the external cause; Y99.9 Unspecified external cause status
CPT/HCPCS: 73620; 99282; 99283

== ENCOUNTER 2022-07-28 | Outpatient (REF) | payer OTHER, SELFPAY ==
--- NOTE | ~2022-07-28 | XR_ITS ---
EXAMINATION: XR FOOT, LEFT CLINICAL INFORMATION: Pain. COMPARISON: Radiograph of the left foot 07/14/2022. TECHNIQUE: AP, lateral, and oblique views of the left foot. FINDINGS: Again noted oblique fracture of the distal shaft of the fifth metatarsal, not significantly changed in appearance nor alignment when compared to 07/14/2022. No new fractures. No subluxation. Decreased bone mineralization with moderate multifocal osteoarthritis and hallux valgus. There is diffuse soft tissue swelling with new nonspecific punctate radiodensities along the lateral and plantar surface of the forefoot. XR/XR foot LT min 3V IMPRESSION: 1. No significant change in the oblique fracture of the distal shaft of the fifth metatarsal. No radiographic evidence of significant healing. 2. New nonspecific punctate radiodensities along the lateral and plantar surface of the forefoot. Correlate with physical examination. 3. Diffuse soft tissue swelling.
== END 2022-07-28 00:01 | disposition home or self-care (01) ==
LOC: HO.HOSX
PROVIDERS: Visit Provider Physician Assistant
DX: S92.352A Displaced fracture of fifth metatarsal bone, left foot, initial encounter for closed fracture (principal); X58.XXXA Exposure to other specified factors, initial encounter; Y93.9 Activity, unspecified; Y92.9 Unspecified place or not applicable; Y99.9 Unspecified external cause status
CPT/HCPCS: 73630; 99202

== ENCOUNTER 2022-08-25 | Outpatient (REF) | payer OTHER, SELFPAY ==
--- NOTE | ~2022-08-25 | XR_ITS ---
EXAMINATION: XR FOOT, LEFT CLINICAL INFORMATION: Fracture fifth metatarsal. Follow-up. COMPARISON: Left foot radiographs 07/28/2022, 07/14/2022. TECHNIQUE: AP, lateral, and oblique views of the left foot. FINDINGS: Fracture distal shaft and neck left fifth metatarsal is similar in alignment to prior exams. Fracture line is clearly visible. No periostitis or callus formation at this time. No dislocation or destructive process. Again, there is prominent hallux valgus first MTP with mild degenerative changes. The punctate artifact overlying the plantar foot soft tissues on prior exam are no longer visible. XR/XR foot LT min 3V IMPRESSION: Left fifth metatarsal fracture alignment is stable.
== END 2022-08-25 00:01 ==
LOC: HO.HOSX
PROVIDERS: Visit Provider Physician Assistant
DX: S92.302A Fracture of unspecified metatarsal bone(s), left foot, initial encounter for closed fracture (principal)
CPT/HCPCS: 73630; 99212

== ENCOUNTER 2022-09-30 09:17 | Outpatient (REF) | payer OTHER, SELFPAY ==
--- NOTE | ~2022-09-30 | XR_ITS ---
EXAMINATION: XR FOOT, LEFT CLINICAL INFORMATION: Pain left foot. COMPARISON: 08/25/2022 and studies dating back to 07/14/2022. TECHNIQUE: 3 views of the left foot of the left foot. FINDINGS: There is continued healing with what appears to be some bony bridging of oblique fracture involving the left 5th metatarsal without change in alignment. Fracture line is still evident. No new acute fractures identified. There is osteopenia visualized bones. Hallux valgus deformity of the 1st metatarsophalangeal joint is again seen. There appears to be an old fracture involving the 5th proximal phalanx. XR/XR foot LT min 3V IMPRESSION: Healing fracture of the left 5th metatarsal without change in alignment. Probable old healed right 5th proximal phalanx fracture.
== END 2022-09-30 09:18 | disposition home or self-care (01) ==
LOC: HO.HOSX 09:17
PROVIDERS: Visit Provider Physician Assistant
DX: S92.302A Fracture of unspecified metatarsal bone(s), left foot, initial encounter for closed fracture (principal)
CPT/HCPCS: 73630; 99212

== ENCOUNTER → 2022-10-17 14:13 | Outpatient (BNVA) | payer OTHER, SELFPAY | PROVIDERS: PCP Physician Assistant; Visit Provider Nurse Practitioner | DX: K21.9 Gastro-esophageal reflux disease without esophagitis (principal); K22.70 Barrett's esophagus without dysplasia; K51.20 Ulcerative (chronic) proctitis without complications; D12.6 Benign neoplasm of colon, unspecified | CPT/HCPCS: 99212 ==

== ENCOUNTER → 2022-10-30 14:26 | Outpatient (BNVA) | payer OTHER, SELFPAY | PROVIDERS: Visit Provider Advanced Practice Midwife | DX: Z13.89 Encounter for screening for other disorder (principal) ==

== ENCOUNTER 2022-12-12 15:00 | Outpatient (RCR) | payer OTHER, SELFPAY ==
--- NOTE | 2022-10-14 16:32 | MHC.PT.EP ---
[facility] [place] Office [place] Office [place] Office [address] Gladys Yan [address] [phone] F: [phone] F: [phone] F: [phone] F: [phone] Physical Therapy Plan of Care Date of Evaluation: Date of Surgery: NA Diagnosis: FX 5TH METATARSAL Assessment: Pt IS 52 YO F REFERRED TO PT FROM [facility] ([facility]) WITH L 5TH METATARSAL FX WHICH OCCURRED ON 07/14/22 WHEN SHE STOOD UP AND TWISTED IT. HAS BEEN IN WALKING BOOT SINCE PCP VISIT ON 07/15/22 AND WAS ED TO DC WALKING BOOT WHEN SAW ORTHO ON 08/25/22 BUT Pt STILL IN IT TODAY. REPORTS SHE REQUESTED PT REFERRAL BECAUSE HER BALANCE HAS BEEN OFF. SHE HAD A FALL 4 DAYS AGO. PRESENTS WITH SLIGHT DECREASE IN L ANKLE ROM AND STRENGTH WITH POOR GT PATTERN (HAS BEEN IN BOOT FOR A LONG TIME). WITH BOOT OFF AND USE OF ST CANE, HER BALANCE SHOULD BE BETTER. WILL SEE FOR SHORT PERIOD OF TIME TO ED RE HOME PROG AND GT TRNG WITH BAL WORK/PROP WORK. OF NOTE, Pt WITHOUT C/O PAIN Frequency and Duration: The patient will be seen 1X/WK X 4 WKS Short Term Goals: 1.INCREASED AWARENESS FOOT CARE 2. 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 I HEP WITH DC EX PLAN 2. Pt TO REPORT NO FALLS AND FEELING OF IMPROVED BALANCE Treatment Plan: Modalities to reduce pain, spasms and effusion. Manual therapy to restore motion and function. Therapeutic exercise to improve strength and flexibility. Neuromuscular re-education for posture and balance. Therapeutic activities to return to functional activities of daily living. Electronically signed by: JUAN DUNBAR PT Please sign and return to therapist. Thank you for your referral.
--- NOTE | 2022-12-19 15:52 | MHC.PT.DC ---
[facility] [place] Office [place] Office [place] Office [address] Gladys Yan [address] [phone] F: [phone] F: [phone] F: [phone] F: [phone] Physical Therapy Discharge Report Diagnosis: FX 5TH METATARSAL Date of Surgery: NA Date of Evaluation: 10/14/22 Date of Discharge: 12/19/22 Treatments to Date: 5 Cancellations to Date: No Shows to Date: Discharge Status: Achieved Goals Improved Function Independent with HEP Discharge Summary: HAS MET PT GOALS AND HAS GOOD UNDERSTANDING OF STRETCHES, EXS Electronically signed by: JUAN DUNBAR PT Please sign and return to therapist. Thank you for your referral.
== END 2022-12-19 15:53 | disposition home or self-care (01) ==
LOC: HO.PT 15:00
PROVIDERS: PCP Physician Assistant; Visit Provider Physician Assistant
DX: S92.302D Fracture of unspecified metatarsal bone(s), left foot, subsequent encounter for fracture with routine healing (principal)
CPT/HCPCS: 97110; 97116; 97162; 97530

== ENCOUNTER 2023-04-17 13:59 | Outpatient (AMB) | payer OTHER, SELFPAY ==
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
[2023-04-17 14:05] VITALS: BP 137/86; PULSE 130
== END 2023-04-17 14:31 | disposition home or self-care (01) ==
PROVIDERS: PCP Physician Assistant; Visit Provider Nurse Practitioner
DX: K58.2 Mixed irritable bowel syndrome (principal); K30 Functional dyspepsia; K21.9 Gastro-esophageal reflux disease without esophagitis; K22.70 Barrett's esophagus without dysplasia
CPT/HCPCS: 99213

== ENCOUNTER → 2023-04-17 13:59 | Outpatient (BNVA) | payer OTHER, SELFPAY | PROVIDERS: PCP Physician Assistant; Visit Provider Nurse Practitioner | DX: K58.2 Mixed irritable bowel syndrome (principal); K51.20 Ulcerative (chronic) proctitis without complications; K30 Functional dyspepsia; K21.9 Gastro-esophageal reflux disease without esophagitis; K22.70 Barrett's esophagus without dysplasia | CPT/HCPCS: 99212 ==

== ENCOUNTER 2023-04-24 15:27 | Outpatient (REF) | payer OTHER, SELFPAY ==
--- NOTE | ~2023-04-24 | US_ITS ---
EXAMINATION: US VENOUS WITH DOPPLER UPPER EXTREMITY, RIGHT CLINICAL INFORMATION: Contusion of the upper arm. Pain. Bruising. COMPARISON: None available. TECHNIQUE: Ultrasound of the upper extremity is performed using compression sonography and color and pulse Doppler flow with assessment of augmentation of flow. There is also imaging and Doppler assessment of the jugular and subclavian veins. Spectral analysis with color-flow imaging is performed. FINDINGS: Respiratory variation, normal compression, and augmented flow are noted throughout the upper extremity including the axillary, and brachial veins. There is normal flow in the internal jugular and subclavian veins. There is no visible deep or superficial thrombophlebitis. If the patient's symptoms progress, a followup ultrasound in 5 -7 days might be of value to exclude proximal propagation from a nonvisualized distal arm vein. At the posterior right upper arm in the area of the palpable finding there is a day next echogenic collection that is nonvascular and Doppler concerning for possible hematoma. This measures about 2.7 x 1.5 x 2.2 cm. US/US venous duplex UE RT IMPRESSION: 1. No DVT demonstrated in the right upper extremity. 2. Possible hematoma correlating to the palpable finding at the posterior right upper arm.
--- NOTE | ~2023-04-24 | US_ITS ---
EXAMINATION: US ABDOMEN LIMITED CLINICAL INFORMATION: Right upper quadrant mispositioned IUD. COMPARISON: CT abdomen and pelvis 02/25/2022. Ultrasound abdomen complete 12/10/2021. TECHNIQUE: Real-time imaging of the right upper quadrant. FINDINGS: Targeted ultrasound images were obtained by the claim inspector of the area of concern as indicated by the patient and prior imaging in the right upper quadrant for evaluation of previously noted IUD displaced in the right midabdomen anterior to the kidneys on CT scan of 02/26/2022. Radiologist was not in attendance. Images were later provided for interpretation. Linear echogenic structure felt to represent the IUD is present in the indicated area superior to the umbilicus and approximately 3.8 cm deep to the skin on provided images. Visualization limited due to bowel gas and body habitus. CT scan demonstrated IUD in the right upper quadrant mid abdomen anterior to the kidneys. US/US abdomen limited IMPRESSION: 1. Linear echogenic structure felt to represent the IUD is present in the indicated area superior to the umbilicus and approximately 3.8 cm deep to the skin on provided images. Visualization limited due to bowel gas and body habitus. 2. CT scan demonstrated IUD in the right upper quadrant mid abdomen anterior to the kidneys.
== END 2023-04-24 15:28 | disposition home or self-care (01) ==
LOC: HO.US 15:27
PROVIDERS: Visit Provider Internal Medicine
DX: M79.601 Pain in right arm (principal); S40.029A Contusion of unspecified upper arm, initial encounter; T83.32XA Displacement of intrauterine contraceptive device, initial encounter
CPT/HCPCS: 76705; 93971

== ENCOUNTER 2023-05-06 13:13 | Outpatient (AMB) | payer OTHER, SELFPAY ==
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
[2023-05-06 13:16] VITALS: BP 100/60
== END 2023-05-06 14:29 | disposition home or self-care (01) ==
LOC: HO.HWS 13:13
PROVIDERS: PCP Physician Assistant; Visit Provider Advanced Practice Midwife
DX: R19.7 Diarrhea, unspecified (principal)
CPT/HCPCS: 99213

== ENCOUNTER → 2023-05-06 13:13 | Outpatient (BNVA) | payer OTHER, SELFPAY | PROVIDERS: PCP Physician Assistant; Visit Provider Advanced Practice Midwife | DX: R19.7 Diarrhea, unspecified (principal) | CPT/HCPCS: 99212 ==

== ENCOUNTER 2023-06-05 07:50 | Emergency (ER) | payer OTHER, SELFPAY ==
--- NOTE | ~2023-06-05 | XR_ITS ---
EXAMINATION: XR KNEE, LEFT CLINICAL INFORMATION: Pain status post fall COMPARISON: None available. TECHNIQUE: Four views of the left knee. FINDINGS: There is no evidence of fracture or dislocation but there is joint effusion present. Undisplaced fracture couldn't be excluded if clinically indicated follow-up by additional imaging. XR/XR knee LT 4V IMPRESSION: Joint effusion
[2023-06-05 07:56] VITALS: BP 130/86; BP 134/87; PULSE 106; PULSE 110; RESP 18; TEMP 36.9; O2SAT 97; O2SAT 98; BMI 22.5
--- NOTE | 2023-06-05 08:05 | PC.NURSE ---
slipped last night into the splits causing the left knee to strike the ground. No HS/LOC. Left knee appears swollen. +2 pulses LLE. 5/10 pain. A&Ox3.
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
== END 2023-06-05 09:30 | disposition home or self-care (01) ==
PROVIDERS: Emergency Provider Emergency Medicine; PCP Physician Assistant
DX: S89.92XA Unspecified injury of left lower leg, initial encounter (principal); M25.562 Pain in left knee; F17.210 Nicotine dependence, cigarettes, uncomplicated; W01.10XA Fall on same level from slipping, tripping and stumbling with subsequent striking against unspecified object, initial encounter; Y93.9 Activity, unspecified; Y92.009 Unspecified place in unspecified non-institutional (private) residence as the place of occurrence of the external cause; Y99.9 Unspecified external cause status; Z71.6 Tobacco abuse counseling; Z79.899 Other long term (current) drug therapy; Z79.01 Long term (current) use of anticoagulants
CPT/HCPCS: 29505; 73564; 99282; 99283

== ENCOUNTER 2023-06-23 11:24 | Outpatient (REF) | payer OTHER, SELFPAY ==
--- NOTE | ~2023-06-23 | XR_ITS ---
EXAMINATION: XR KNEE AP STANDING CLINICAL INFORMATION: Pain in unspecified knee. COMPARISON: 06/05/2023. TECHNIQUE: AP standing view of bilateral knees. [place] view of the left knee. FINDINGS: AP view of the right knee demonstrates mild medial joint space narrowing with tiny medial and lateral marginal osteophytes. AP standing view of the left knee and sunrise view of the left knee demonstrate minimal medial joint space narrowing. Small sclerotic focus overlying the lateral femoral condyle of the left knee may represent a bone island. Small rounded soft tissue calcification identified in the interosseous region of the left lower leg. XR/XR knee LT 1V IMPRESSION: 1. Mild degenerative changes right knee. 2. Minimal degenerative changes left knee. 3. Additional imaging with CT scan or MRI should be considered for better visualization as these modalities are much more sensitive for detection of fracture or other underlying pathology.
--- NOTE | ~2023-06-23 | XR_ITS ---
EXAMINATION: XR KNEE AP STANDING CLINICAL INFORMATION: Pain in unspecified knee. COMPARISON: 06/05/2023. TECHNIQUE: AP standing view of bilateral knees. [place] view of the left knee. FINDINGS: AP view of the right knee demonstrates mild medial joint space narrowing with tiny medial and lateral marginal osteophytes. AP standing view of the left knee and sunrise view of the left knee demonstrate minimal medial joint space narrowing. Small sclerotic focus overlying the lateral femoral condyle of the left knee may represent a bone island. Small rounded soft tissue calcification identified in the interosseous region of the left lower leg. XR/XR knee standing BI IMPRESSION: 1. Mild degenerative changes right knee. 2. Minimal degenerative changes left knee. 3. Additional imaging with CT scan or MRI should be considered for better visualization as these modalities are much more sensitive for detection of fracture or other underlying pathology.
== END 2023-06-23 11:25 | disposition home or self-care (01) ==
LOC: HO.HOSX 11:24
PROVIDERS: Visit Provider Physician Assistant
DX: S83.8X2A Sprain of other specified parts of left knee, initial encounter (principal)
CPT/HCPCS: 73560; 73565; 99212

== ENCOUNTER 2023-06-23 14:06 | Outpatient (AMB) | payer OTHER, SELFPAY ==
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
[2023-06-23 14:16] VITALS: BMI 22.5
== END 2023-06-23 15:29 | disposition home or self-care (01) ==
PROVIDERS: PCP Physician Assistant; Visit Provider Physician Assistant
DX: S83.8X2A Sprain of other specified parts of left knee, initial encounter (principal)
CPT/HCPCS: 99214

== ENCOUNTER 2023-07-08 09:44 | Outpatient (AMB) | payer OTHER, SELFPAY ==
[2023-07-08 09:53] VITALS: BP 114/76; PULSE 122; RESP 17; O2SAT 95
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
== END 2023-07-08 10:38 | disposition home or self-care (01) ==
PROVIDERS: PCP Physician Assistant; Visit Provider Physician Assistant
DX: M84.362D Stress fracture, left tibia, subsequent encounter for fracture with routine healing (principal); E78.2 Mixed hyperlipidemia
CPT/HCPCS: 99214

== ENCOUNTER 2023-07-25 02:10 | Emergency (ER) | payer OTHER, SELFPAY ==
[2023-07-25 02:24] VITALS: BP 128/84; PULSE 97; O2SAT 98; BMI 23.1
[2023-07-25 02:39] VITALS: BP 102/74; PULSE 80; RESP 17; TEMP 36.3; O2SAT 98
--- NOTE | 2023-07-25 02:42 | MHC.EDTECH ---
BELONGINGS PUT IN LOCKER 1 IN POD BY SECURITY @ THIS TIME
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
--- NOTE | 2023-07-25 02:56 | MHC.EDTECH ---
Patient changed over to JAQUAN barry
[2023-07-25 02:58] LABS: MANUAL DIFF FLAG NO
[2023-07-25 02:59] LABS: Basophils Absolute Auto 0.1 X10*3/uL (0.0-0.2); Basophils Percent Auto 1.1 % (0-2); Eosinophils Absolute Auto 0.2 X10*3/uL (0.0-0.4); Eosinophils Percent Auto 2.9 % (0-4); Hematocrit 49.9 % (37.0-47.0); Hemoglobin 17.4 g/dl (12.0-16.0); Imm Gran Abs Auto 0.02 X10*3/uL (0.00-0.03); Imm Gran Pct Auto 0.3 % (0.0-0.4); Lymphocytes Absolute Auto 2.6 X10*3/uL (1.2-4.9); Lymphocytes Percent Auto 41.5 % (20-40); Mean Corpuscular HGB Conc 34.9 g/dl (31.0-35.0); Mean Corpuscular Hemoglobin 31.8 pg (27.0-33.0); Mean Corpuscular Volume 91.2 fL (80.0-98.0); Mean Platelet Volume 9.8 fL (9.4-12.3); Monocytes Absolute Auto 0.4 X10*3/uL (0.1-1.2); Monocytes Percent Auto 6.4 % (2-11); Neutrophils Absolute Auto 2.9 x10*3/uL (2.0-8.3); Neutrophils Percent Auto 47.8 % (45-73); Platelet Count 297 X10*3/uL (160-400); Red Blood Count 5.47 X10*6/uL (4.20-5.50); Red Cell Distribution Width 12.7 % (11.0-16.0); White Blood Count 6.1 X10*3/uL (4.8-10.8)
[2023-07-25 03:00] LABS: Amphetamine Screen Urine Not Detected (Not Detect); Barbiturates, Urine Not Detected (Not Detect); Benzodiazepines Screen Urine Not Detected (Not Detect); Cannabinoid Screen Urine Not Detected (Not Detect); Cocaine Screen Urine Not Detected (Not Detect); Fentanyl, urine Not Detected (Not Detect); Opiate Screen Urine Not Detected (Not Detect); Phencyclidine Screen Urine Not Detected (Not Detect)
[2023-07-25 03:12] LABS: Alanine Aminotransferase 13 U/L (0-31); Alkaline Phosphatase 78 U/L (39-117); Anion Gap 19 (12-20); Aspartate Amino Transferase 18 U/L (5-31); Bilirubin Total 0.3 mg/dL (0.0-1.0); Blood Urea Nitrogen 9 mg/dL (9-16); Calcium 9.3 mg/dL (8.4-10.2); Carbon Dioxide 19 mmol/L (22-29); Chloride 108 mmol/L (96-108); Creatinine Clr Calc Pharmacy 85.4; Estimated Glomerular Filt Rate > 60; Ethanol 268 mg/dL; Glucose Random 91 mg/dL (60-115); Potassium 3.8 mmol/L (3.3-5.1); Sodium 142 mmol/L (135-145)
[2023-07-25 03:17] LABS: Acetaminophen LAB < 17 mcg/mL (<30); Salicylate < 5.0 mg/dL (15-30)
--- NOTE | 2023-07-25 04:30 | PC.NURSE ---
Security called at 0412 as pt was noted to be out of bed and not listening to staff's verbal redirection, asking her to return back to bed. The pt stopped at the desk in front of CT requesting to leave/be discharged, garbage depot worker educated the pt on why that is not possible at this time and requested that she return to her bed. Pt refused to return back to bed, RN informed the pt that she was intoxicated and discharge at this was unsafe. Pt began to argue with this RN regarding her intoxication level, RN provided pt with ETOH level per lab reports. Pt was escorted back to her bed in 17H by [facility], informed that the MD would see her as soon as he was available.
--- NOTE | 2023-07-25 04:40 | PC.NURSE ---
UPon pt's return back to her bed in 17H she was noted to be on the phone speaking to someone and then asked Am I a section? . RN informed the pt that as of right now she was not a section 12 however if needed we would initiate it due to safety concern, intoxication level and reports by EMS. Pt then gave this RN the phone and on the other line was KALEB, [facility] employee reported telling the pt that there was nothing they could do for her at this time. [facility] employee made aware that the pt was not safe to be discharged at this time without MD liu and potential need for care team involvement. pig machine supervisor and BHN ended the call, pt then noted to call this RN reba haywood and then proceeded to stick her middle finger up at me. Pt back in [facility] dsitress noted.
[2023-07-25 05:27] VITALS: BP 114/75; PULSE 101; RESP 17; TEMP 36.6; O2SAT 97
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
== END 2023-07-25 06:58 | disposition home or self-care (01) ==
PROVIDERS: Emergency Provider Emergency Medicine Emergency Medical Services
DX: F10.120 Alcohol abuse with intoxication, uncomplicated (principal); Y90.8 Blood alcohol level of 240 mg/100 ml or more; F32.A Depression, unspecified; F41.9 Anxiety disorder, unspecified; E78.5 Hyperlipidemia, unspecified; F17.210 Nicotine dependence, cigarettes, uncomplicated; F12.90 Cannabis use, unspecified, uncomplicated; Z79.899 Other long term (current) drug therapy
CPT/HCPCS: 36415; 80053; 80143; 80179; 80307; 85025; 99285

== ENCOUNTER 2023-07-31 11:23 | Outpatient (REF) | payer OTHER, SELFPAY ==
[2023-07-31 13:46] LABS: Hematocrit 50.5 % (37.0-47.0); Mean Corpuscular HGB Conc 33.7 g/dl (31.0-35.0); Mean Corpuscular Hemoglobin 31.4 pg (27.0-33.0); Mean Corpuscular Volume 93.3 fL (80.0-98.0); Platelet Count 310 X10*3/uL (160-400); Red Blood Count 5.41 X10*6/uL (4.20-5.50); White Blood Count 6.7 X10*3/uL (4.8-10.8)
[2023-07-31 14:38] LABS: Alanine Aminotransferase 12 U/L (0-31); Albumin Level 4.2 g/dL (3.5-5.0); Alkaline Phosphatase 82 U/L (39-117); Anion Gap 15 (12-20); Aspartate Amino Transferase 18 U/L (5-31); Bilirubin Total 0.8 mg/dL (0.0-1.0); Blood Urea Nitrogen 14 mg/dL (9-16); C Reactive Protein 0.13 mg/dL (< or = 0.50); Calcium 9.9 mg/dL (8.4-10.2); Carbon Dioxide 25 mmol/L (22-29); Chloride 104 mmol/L (96-108); Cholesterol 257 mg/dL (<200); Estimated Glomerular Filt Rate > 60; Glucose Fasting 95 mg/dL (60-99); HDL Cholesterol 71 mg/dL (>40); LDL Cholesterol Calculated 163 mg/dL (<100); Potassium 3.5 mmol/L (3.3-5.1); Sodium 140 mmol/L (135-145); Total Protein 7.1 g/dL (6.5-8.0); Triglycerides 118 mg/dL (<150)
== END 2023-07-31 11:24 | disposition home or self-care (01) ==
LOC: HO.LAB 11:23
PROVIDERS: Absent Provider Nurse Practitioner; PCP Physician Assistant; Visit Provider Physician Assistant
DX: M84.362D Stress fracture, left tibia, subsequent encounter for fracture with routine healing (principal); S80.02XD Contusion of left knee, subsequent encounter; E78.2 Mixed hyperlipidemia; K51.20 Ulcerative (chronic) proctitis without complications
CPT/HCPCS: 36415; 80053; 80061; 84443; 85027; 86140; 99212

== ENCOUNTER 2023-07-31 11:23 | Outpatient (AMB) | payer OTHER, SELFPAY ==
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
== END 2023-07-31 11:58 | disposition home or self-care (01) ==
PROVIDERS: PCP Physician Assistant; Visit Provider Physician Assistant
DX: M84.362D Stress fracture, left tibia, subsequent encounter for fracture with routine healing (principal); S80.02XD Contusion of left knee, subsequent encounter; S83.422A Sprain of lateral collateral ligament of left knee, initial encounter
CPT/HCPCS: 99213

== ENCOUNTER 2023-09-04 11:43 | Outpatient (REF) | payer OTHER, SELFPAY ==
--- NOTE | ~2023-09-04 | XR_ITS ---
EXAMINATION: XR KNEE, LEFT XR KNEE AP STANDING CLINICAL INFORMATION: Pain. COMPARISON: Radiographs dated 08/22/2023. TECHNIQUE: Lateral and axial views of the left knee are submitted. AP standing view of the bilateral knees are submitted. FINDINGS: The bilateral medial joint space compartments and the left patellofemoral compartment are well-maintained. No fracture, dislocation or unusual degenerative change is seen. There is no left knee joint effusion. No varus or valgus configuration is seen bilaterally. No foreign body is noted. XR/XR knee LT 2V IMPRESSION: Unremarkable left knee and bilateral knee AP radiographs.
--- NOTE | ~2023-09-04 | XR_ITS ---
EXAMINATION: XR KNEE, LEFT XR KNEE AP STANDING CLINICAL INFORMATION: Pain. COMPARISON: Radiographs dated 08/22/2023. TECHNIQUE: Lateral and axial views of the left knee are submitted. AP standing view of the bilateral knees are submitted. FINDINGS: The bilateral medial joint space compartments and the left patellofemoral compartment are well-maintained. No fracture, dislocation or unusual degenerative change is seen. There is no left knee joint effusion. No varus or valgus configuration is seen bilaterally. No foreign body is noted. XR/XR knee standing BI IMPRESSION: Unremarkable left knee and bilateral knee AP radiographs.
== END 2023-09-04 11:44 | disposition home or self-care (01) ==
LOC: HO.HOSX 11:43
PROVIDERS: Visit Provider Physician Assistant
DX: M84.362D Stress fracture, left tibia, subsequent encounter for fracture with routine healing (principal)
CPT/HCPCS: 73560; 73565; 99212

== ENCOUNTER 2023-09-04 12:43 | Outpatient (AMB) | payer OTHER, SELFPAY ==
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
[2023-09-04 13:06] VITALS: BMI 26.6
== END 2023-09-04 13:34 | disposition home or self-care (01) ==
PROVIDERS: PCP Physician Assistant; Visit Provider Physician Assistant
DX: M84.362D Stress fracture, left tibia, subsequent encounter for fracture with routine healing (principal)
CPT/HCPCS: 99213

== ENCOUNTER 2023-09-04 15:00 | Outpatient (RCR) | payer OTHER, SELFPAY ==
--- NOTE | 2023-07-31 14:58 | MHC.PT.EP ---
[facility] [place] Office [place] Office [place] Office [address] Gladys Yan [address] [phone] F: [phone] F: [phone] F: [phone] F: [phone] Physical Therapy Plan of Care Date of Evaluation: 07/31/23 Date of Surgery: NA Diagnosis: ACUTE MENISCAL TEAR OF L KNEE Assessment: Pt IS 53 YO F REFERRED TO PT FROM [facility]THO ([facility]) WITH L LAT TIB PLATEAU FX FROM 06/05/23. PRESENT WITH CRUTCHES TTWB WITH SLIGHTLY LIMITED KNEE ROM AND LE STRENGTH. SHOULD BENEFIT FROM PT 1X/WK UNTIL ORTHO FU (CLEARED FOR FWB) THEN 1X/WK FOR PROGRESSION TO CLOSED CHAIN/PROP WORK Frequency and Duration: The patient will be seen 1X/WK X 8 WKS TOTAL Short Term Goals: 1. INCREASED AWARENESS KNEE CARE 2. L KNEE ROM 0-135 Prosthetic Dentist Goals: 1. I GT WITHOUT AD WITH GOOD GT PATTERN 2. I HEP 3. DECREASED PAIN L KNEE PAIN AT LEAST 50% WITH ADLS Treatment Plan: Modalities to reduce pain, spasms and effusion. Manual therapy to restore motion and function. Therapeutic exercise to improve strength and flexibility. Neuromuscular re-education for posture and balance. Therapeutic activities to return to functional activities of daily living. Electronically signed by: JUAN DUNBAR PT Please sign and return to therapist. Thank you for your referral.
--- NOTE | 2023-10-23 10:59 | MHC.PT.DC ---
[facility] [place] Office [place] Office [place] Office [address] Gladys Yan [address] [phone] F: [phone] F: [phone] F: [phone] F: [phone] Physical Therapy Discharge Report Diagnosis: ACUTE MENISCAL TEAR OF L KNEE Date of Surgery: NA Date of Evaluation: 07/31/23 Date of Discharge: 10/23/23 Treatments to Date: 4 Cancellations to Date: No Shows to Date: Discharge Status: Improved Function Independent with HEP Patient Elected to Stop Discharge Summary: AT LAST APPT ON 09/23, Pt REQUESTS LEAVING A LITTLE EARLY BECAUSE OF FATIGUE. NO LIMP NOTED, DECREASED LE ENDURANCE NOTED Pt THEN CANCELLED NEXT 2 VISITS BECAUSE OF ILLNESS, THEN CANCELLED LAST 2 VISITS REPORTING FEELING BETTER. THIS PT LEFT MESSAGE FOR Pt RE DISCHARGE AND TO CALL IF FURTHER NEED FOR PT Electronically signed by: JUAN DUNBAR PT Please sign and return to therapist. Thank you for your referral.
== END 2023-10-23 10:59 | disposition home or self-care (01) ==
LOC: HO.PT 15:00
PROVIDERS: Absent Provider Physician Assistant; PCP Physician Assistant; Visit Provider Physician Assistant
DX: S83.207A Unspecified tear of unspecified meniscus, current injury, left knee, initial encounter (principal)
CPT/HCPCS: 97110; 97116; 97161; 97530; 97535

== ENCOUNTER 2023-10-16 10:29 | Outpatient (REF) | payer OTHER, SELFPAY | END 2023-10-16 10:30 | disposition home or self-care (01) | LOC: HO.HOSX 10:29 | PROVIDERS: Visit Provider Physician Assistant | DX: Z13.89 Encounter for screening for other disorder (principal) ==

== ENCOUNTER 2023-11-13 12:49 | Outpatient (REF) | payer OTHER, SELFPAY | END 2023-11-13 12:50 | disposition home or self-care (01) | LOC: HO.HOSX 12:49 | PROVIDERS: Visit Provider Physician Assistant | DX: Z13.89 Encounter for screening for other disorder (principal) ==

== ENCOUNTER 2023-11-19 12:48 | Outpatient (REF) | payer OTHER, SELFPAY ==
[2023-11-23 23:32] LABS: HPV mRNA E6/E7 rflx Not Detected (Not Detected)
== END 2023-11-19 12:49 | disposition home or self-care (01) ==
LOC: HO.LNP 12:48
PROVIDERS: PCP Physician Assistant; Visit Provider Advanced Practice Midwife
DX: Z01.419 Encounter for gynecological examination (general) (routine) without abnormal findings (principal); Z11.51 Encounter for screening for human papillomavirus (HPV)
CPT/HCPCS: 87624; 88142; 99396

== ENCOUNTER 2023-11-19 12:48 | Outpatient (AMB) | payer OTHER, SELFPAY ==
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
[2023-11-19 12:57] VITALS: BP 132/80
== END 2023-11-19 13:24 | disposition home or self-care (01) ==
LOC: HO.HWS 12:48
PROVIDERS: PCP Physician Assistant; Visit Provider Advanced Practice Midwife
DX: Z01.419 Encounter for gynecological examination (general) (routine) without abnormal findings (principal)
CPT/HCPCS: 99396

== ENCOUNTER 2023-12-04 12:18 | Outpatient (AMB) | payer OTHER, SELFPAY ==
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
[2023-12-04 12:39] VITALS: BP 144/94; PULSE 130
== END 2023-12-04 13:00 | disposition home or self-care (01) ==
PROVIDERS: PCP Physician Assistant; Visit Provider Nurse Practitioner
DX: K51.20 Ulcerative (chronic) proctitis without complications (principal)
CPT/HCPCS: 99213

== ENCOUNTER → 2023-12-04 12:18 | Outpatient (BNVA) | payer OTHER, SELFPAY | PROVIDERS: PCP Physician Assistant; Visit Provider Nurse Practitioner | DX: K51.20 Ulcerative (chronic) proctitis without complications (principal) | CPT/HCPCS: 99212 ==

== ENCOUNTER 2024-03-15 10:36 | Outpatient (AMB) | payer OTHER, SELFPAY ==
[2024-03-15 10:38] VITALS: BP 122/79; PULSE 103
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
== END 2024-03-15 11:34 | disposition home or self-care (01) ==
PROVIDERS: PCP Physician Assistant; Visit Provider Nurse Practitioner
DX: K51.20 Ulcerative (chronic) proctitis without complications (principal); K22.70 Barrett's esophagus without dysplasia; D12.6 Benign neoplasm of colon, unspecified; R15.9 Full incontinence of feces
CPT/HCPCS: 99214

== ENCOUNTER → 2024-03-15 10:36 | Outpatient (BNVA) | payer OTHER, SELFPAY | PROVIDERS: PCP Physician Assistant; Visit Provider Nurse Practitioner | DX: Z01.818 Encounter for other preprocedural examination (principal); K51.20 Ulcerative (chronic) proctitis without complications; K22.70 Barrett's esophagus without dysplasia; K58.2 Mixed irritable bowel syndrome; D12.6 Benign neoplasm of colon, unspecified; R15.9 Full incontinence of feces | CPT/HCPCS: 99212 ==

== ENCOUNTER 2024-03-21 11:10 | Outpatient (AMB) | payer OTHER, SELFPAY ==
[2024-03-21 11:30] VITALS: BP 124/86; PULSE 123; O2SAT 97
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
== END 2024-03-21 12:11 | disposition home or self-care (01) ==
PROVIDERS: PCP Physician Assistant; Visit Provider Physician Assistant
DX: E78.2 Mixed hyperlipidemia (principal); F17.290 Nicotine dependence, other tobacco product, uncomplicated; F41.1 Generalized anxiety disorder; K22.70 Barrett's esophagus without dysplasia; M84.362D Stress fracture, left tibia, subsequent encounter for fracture with routine healing; B37.0 Candidal stomatitis
CPT/HCPCS: 99214

== ENCOUNTER 2024-03-25 09:15 | Outpatient (RCR) | payer OTHER, SELFPAY ==
--- NOTE | 2024-03-16 10:09 | PC.NURSE ---
Denice did not show up to the program this morning. I spoke to Denice and she stated her alarm did not go off this morning. She apologized and stated she will be at the program tomorrow.
[2024-03-17 11:43] VITALS: BP 117/86; PULSE 105; TEMP 37.4
--- NOTE | 2024-03-17 16:26 | PC.NURSE ---
Patient is a 53 year old female who was referred to [facility] by [facility] crisis as patient struggling with leaving her house with increased anxiety, agoraphobia, and PTSD sxs. Patient has to get a new therapist and is having abandonment issues as a result. She also reports since she injured her knee she stopped leaving the house and now feels uncomfortable leaving her home. She also is afraid to leave her home as she went on an overnight and found her cat . She currently has two cats that she cares for an is afraid to leave them alone . I had to sever ties with my therapist . Patient reports she has an appointment tomorrow at 2:30 with [facility] intake for a new therapist. Plan is to attend DBT after [facility], patient stated, I also have a referral to the [facility] DBT 6 month program. I talked to Keon and set it up. I am good at setting up after care . Patient currently is alert and oriented x4. Calm and cooperative. Presented with depressed mood and anxious affect. She denied Si, No HI. Her thoughts are clear and logical. She was given a copy of her safety plan if needed. Medications reconciled with patient and patient's pharmacy. Unclear if she is taking some of her medications as prescribed as some of her medications do not have current prescriptions. Patient reports she is taking medications as prescribed. Patient to bring in pictures of prescription bottles to confirm.
--- NOTE | 2024-03-17 17:27 | HO.PHP ---
Client's case has been opened and reviewed in team.
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
--- NOTE | 2024-03-24 16:20 | HO.PHP ---
[facility] staff member contacted Denice due to her not showing up to the last group of the day. Denice informed the [facility] staff member that she had informed Dr. Barnett prior to leaving the program. [facility] staff member was receptive and thanked Denice for making me aware. Denice then felt as though she was doing everything wrong. [facility] staff member informed her she did nothing wrong and sometimes when providers are meeting with other people they aren't able to relay this information to them. Denice then talked about a pt. within the group setting that she feels was directing something to her. [facility] staff member informed her that is a feeling and no one disclosed that she was triggering them. Denice said she tried to ask that person if she was the trigger after the third group and the other individual told her she doesn't want to talk about what triggered her. Denice said she just wants to know what she did wrong. [facility] staff member asked Denice if she remembers what her goal was this morning. Denice disclosed to focus on herself. Denice stated she did the complete opposite. [facility] staff member stated that it is a goal and it is something she is still working on and reminded her that people are here for their own individuals and if someone becomes triggered in the group then they will have to utilize there coping skills or process their feelings effectively. Denice was receptive. Denice stated she will be returning to program tomorrow and reminded clinician that there are no safety concerns.
--- NOTE | 2024-03-25 08:27 | PC.NURSE ---
Addendum entered by Michelle Lares RN 03/25/24 08:35: I called Shimon back again however she did not answer her phone. Unable to leave a message. Original Note: Shimon called and left a message stating she is struggling to leave and is trying to get dressed however after yesterday she does not feel comfortable with the group anymore. Getting to group will be difficult and wants help. She stated she is not suicidal and has no intent. Stated she is afraid of the group now, particularly one person who she feels she triggered and is not sure how. Wants to be able to understand that. She stated she is not suicidal and has no intent. I called Denice back however she did not answer her phone.
--- NOTE | 2024-03-28 07:29 | HO.PHP ---
PHP Admin, [place], informed [facility] staff that Denice left her a message stating that she won't be in today due to colitis flare up. [place] stated she noted in the message that she will be here tomorrow.
--- NOTE | 2024-03-29 08:10 | HO.PHP ---
PHP Admin, [place], informed the PHP team that Denice left her a voicemail stating that she will not be in attendance to program today due to having issues with her colitis.
--- NOTE | 2024-03-30 15:32 | HO.PHP ---
Pt called PHP this morning to report she will not be in today due to continued medical symptoms (colitis flare-up). Pt is scheduled to discharge today. Discharge was completed over the phone, see discharge summary. Pt reported some passive SI thoughts that come and go, thoughts not current. Reported she has her supports in place and utilizes crisis when she is experiencing SI. Pt reported currently as safe. Pt will be contacted by [facility] provider today to follow-up with her discharge plan regarding medications.
--- NOTE | 2024-03-31 15:12 | HO.PHP ---
Gristmill Operator called pt several times today regarding her voicemail [facility] pt enrolled in. Pt did not sign a release for PHP to communicate with [facility]. This card writer hand attempted to call pt roughly 4 times today to inform her of this but pt did not respond and phone line did not allow for a voicemail to be left.
--- NOTE | 2024-04-01 09:30 | P.EN_ITS ---
Event Note Date of Service: 04/04/24 Event Note: Returned call to patient who was administratively discharged from [facility] for missing too many days. She had called a nu fish of times requesting a call back from this loan underwriter. She spent nearly the entire length of the phone call sharing her experiences in the past few weeks with GI symptoms, as well as a host of complaints about her various treaters and medications she is prescribed. None of these medications are prescribed by this loan underwriter (in fact she has not had any medication changes since she had started [facility]) and unfortunately I was unable to answer any questions she had regarding some new medication alternatives that had been recently brought up by her GI doctor as potential treatment options for her IBS-D. I did provide supportive listening and encouragement to follow up with her provider regarding her concerns. She expressed appreciation for the call and said she just wanted to make sure that she left the program on good terms , hoping that at some point she may be able to return to the program when her GI issues aren't interfering with her ability to attend. Time Spent With Patient Time: Total time managing care of this patient today _30___ minutes.
--- NOTE | 2024-04-06 16:54 | HO.PHP ---
Package Handler attempted to contact Denice today 04/06/24 at 4:55 pm to inform her that a STEPHANE is required for [employer] before PHP can fax discharge info. Pt did not answer and a voicemail box was not setup. This phonecall was made in response to a voicemail left by pt with this request.
== END 2024-03-30 23:59 | disposition home or self-care (01) ==
LOC: HO.PHPA 09:15
PROVIDERS: Visit Provider Psychiatry & Neurology Psychiatry
DX: F41.1 Generalized anxiety disorder (principal); F40.02 Agoraphobia without panic disorder; F50.9 Eating disorder, unspecified; F34.1 Dysthymic disorder; F60.3 Borderline personality disorder; F17.200 Nicotine dependence, unspecified, uncomplicated; Z79.899 Other long term (current) drug therapy
CPT/HCPCS: 90791; 90853

== ENCOUNTER 2024-04-13 14:18 | Outpatient (REF) | payer OTHER, SELFPAY ==
[2024-04-13 14:41] LABS: MANUAL DIFF FLAG NO
[2024-04-13 15:13] LABS: Estimated Average Glucose 88 mg/dL; Hemoglobin A1c % 4.7 % (<6.0)
[2024-04-13 15:19] LABS: Basophils Absolute Auto 0.1 X10*3/uL (0.0-0.2); Basophils Percent Auto 1.4 % (0-2); Eosinophils Absolute Auto 0.1 X10*3/uL (0.0-0.4); Eosinophils Percent Auto 1.8 % (0-4); Hematocrit 48.1 % (37.0-47.0); Hemoglobin 16.7 g/dl (12.0-16.0); Imm Gran Abs Auto 0.03 X10*3/uL (0.00-0.03); Imm Gran Pct Auto 0.4 % (0.0-0.4); Lymphocytes Absolute Auto 1.9 X10*3/uL (1.2-4.9); Mean Corpuscular HGB Conc 34.7 g/dl (31.0-35.0); Mean Corpuscular Hemoglobin 32.9 pg (27.0-33.0); Mean Corpuscular Volume 94.9 fL (80.0-98.0); Mean Platelet Volume 9.9 fL (9.4-12.3); Monocytes Absolute Auto 0.8 X10*3/uL (0.1-1.2); Monocytes Percent Auto 9.7 % (2-11); Neutrophils Absolute Auto 4.8 x10*3/uL (2.0-8.3); Neutrophils Percent Auto 61.7 % (45-73); Platelet Count 308 X10*3/uL (160-400); Red Blood Count 5.07 X10*6/uL (4.20-5.50); Red Cell Distribution Width 13.2 % (11.0-16.0); White Blood Count 7.8 X10*3/uL (4.8-10.8)
[2024-04-13 15:51] LABS: Alanine Aminotransferase 43 U/L (0-31); Albumin Level 3.8 g/dL (3.5-5.0); Alkaline Phosphatase 70 U/L (39-117); Anion Gap 14 (12-20); Aspartate Amino Transferase 30 U/L (5-31); Bilirubin Total 0.5 mg/dL (0.0-1.0); Blood Urea Nitrogen 15 mg/dL (9-16); Calcium 9.1 mg/dL (8.4-10.2); Carbon Dioxide 25 mmol/L (22-29); Chloride 107 mmol/L (96-108); Cholesterol 210 mg/dL (<200); Estimated Glomerular Filt Rate > 60; Glucose Fasting 97 mg/dL (60-99); Glucose Random 97 mg/dL (60-115); HDL Cholesterol 53 mg/dL (>40); LDL Cholesterol Calculated 143 mg/dL (<100); Magnesium 1.6 mg/dL (1.6-2.6); Potassium 3.7 mmol/L (3.3-5.1); Sodium 142 mmol/L (135-145); Total Protein 6.5 g/dL (6.5-8.0); Triglycerides 70 mg/dL (<150)
[2024-04-13 15:55] LABS: Iron 48 mcg/dL (30-160); Percent Iron Saturation 21 % (15-50); Phosphorus 2.2 mg/dL (2.7-4.5); Total Iron Binding Capacity 233 mcg/dL (228-428); Unsaturated Iron Binding 185 ug/dL
[2024-04-13 16:02] LABS: TSH reflex Free T4 2.05 uIU/mL (0.32-4.0); Vitamin D 25-OH Total 8.8 ng/mL (>30)
[2024-04-13 16:04] LABS: Ferritin 74 ng/mL (10-250); Free T4 (Free Thyroxine) 0.77 ng/dL (0.71-1.85)
[2024-04-13 16:24] LABS: Parathyroid Hormone Intact 87.9 pg/mL (8.7-77.1)
[2024-04-13 16:45] LABS: Folate 7.5 ng/mL (> or = 4.0); Vitamin B12 210 pg/mL (200-900)
[2024-04-14 13:53] LABS: Lyme Abs Screen <0.90 index
[2024-04-19 06:40] LABS: Vitamin B1 <6 nmol/L (8-30)
== END 2024-04-13 14:19 | disposition home or self-care (01) ==
LOC: HO.LAB 14:18
PROVIDERS: Internal Medicine; Absent Provider Nurse Practitioner; PCP Physician Assistant; Referring Provider Psychiatry & Neurology Psychiatry; Visit Provider Physician Assistant
DX: F33.9 Major depressive disorder, recurrent, unspecified (principal); F40.02 Agoraphobia without panic disorder
CPT/HCPCS: 36415; 80053; 80061; 82306; 82607; 82728; 82746; 83036; 83540; 83735; 83970; 84100; 84425; 84439; 84443; 85025; 85027; 86617; 86618

== ENCOUNTER 2024-04-22 13:30 | Outpatient (REF) | payer OTHER, SELFPAY ==
--- NOTE | ~2024-04-22 | MM_ITS ---
EXAMINATION: BONE DENSITOMETRY CLINICAL INDICATION: Pathological fracture, unspecified site, initial encounter. COMPARISON: This is the patient's baseline examination. TECHNIQUE: Using a Everypoint DXA System (software version: 13.1) manufactured by [employer], dual-energy x-ray absorptiometry was performed of the lumbar spine and left hip. The images are of good technical quality. Summary results are attached. FINDINGS: LEFT FEMUR, NECK: BMD 0.833 g/cm2, Z-score -0.3, T-score -1.5, osteopenia. LEFT FEMUR, TOTAL: BMD 0.829 g/cm2, Z-score -0.6, T-score -1.4, osteopenia. AP SPINE L1-L4: BMD 1.277 g/cm2, Z-score 1.9, T-score 0.8, normal. IDENTIFIED RISK FACTORS: Anticonvulsant, history of fracture (adult), left oophorectomy, low calcium intake, menopause, secondary osteoporosis, tobacco user (current smoker). HISTORY OF FRACTURE: Other. MEDICATIONS: Vitamin D, ERT/SERMS. MM/XR DEXA axial skeleton IMPRESSION: 1. DIAGNOSIS: Osteopenia based on the lowest T-score value of -1.5 in the femoral neck applying World Health Organization criteria. 2. 10-YEAR FRACTURE RISK PREDICTION, FRAX: Not performed in this patient on estrogen or bone building treatments. 3. Treatment Recommendations: NOF guidelines recommend consideration for treatment in postmenopausal women and men age 50 and older presenting with the following: -A hip or vertebral (clinical or morphometric) fracture. -T-score less than or equal to -2.5 at the femoral neck or spine after appropriate evaluation to exclude secondary causes. -Low bone mass at the hip or spine and a 10-year fracture probability by FRAX of greater than or equal to 3% for hip fracture or greater than or equal to 20% for major osteoporotic fracture based on the [place] adapted WHO algorithm. 4. Other Recommendations: All treatment decisions require clinical judgment and consideration of individual patient factors, including patient preferences, comorbidities, previous drug use, risk factors not captured in the FRAX model (e.g. frailty, falls, vitamin D deficiency, increased bone turnover, interval significant decline in bone density) and possible under or overestimation of fracture risk by FRAX. Additional medical evaluation for secondary cause of low bone mineral density may be appropriate. FUTURE SCAN RECOMMENDATION: People with diagnosed cases of osteoporosis or at high risk for fracture should have regular bone mineral density tests. For patients eligible for Medicare, routine testing is allowed once every 2 years. The testing frequency can be increased to one year for patients who have rapidly progressing disease, those who are receiving or discontinuing medical therapy to restore bone mass, or have additional risk factors.
== END 2024-04-22 13:31 | disposition home or self-care (01) ==
LOC: HO.MAMMO 13:30
PROVIDERS: PCP Physician Assistant; Visit Provider Physician Assistant
DX: Z12.31 Encounter for screening mammogram for malignant neoplasm of breast (principal); Z13.820 Encounter for screening for osteoporosis; Z79.3 Long term (current) use of hormonal contraceptives; Z78.0 Asymptomatic menopausal state
CPT/HCPCS: 77063; 77067; 77080

== ENCOUNTER → 2024-04-22 13:45 | Outpatient (BNV) | payer OTHER, SELFPAY | PROVIDERS: PCP Physician Assistant; Visit Provider Radiology Diagnostic Radiology | DX: Z12.31 Encounter for screening mammogram for malignant neoplasm of breast (principal) | CPT/HCPCS: 77063; 77067 ==

== ENCOUNTER 2024-04-26 13:38 | Outpatient (REF) | payer OTHER, SELFPAY ==
[2024-04-26 15:33] LABS: Hematocrit 50.1 % (37.0-47.0); Hemoglobin 17.3 g/dl (12.0-16.0); Mean Corpuscular HGB Conc 34.5 g/dl (31.0-35.0); Mean Corpuscular Hemoglobin 32.4 pg (27.0-33.0); Mean Corpuscular Volume 93.8 fL (80.0-98.0); Platelet Count 248 X10*3/uL (160-400); Red Blood Count 5.34 X10*6/uL (4.20-5.50); Red Cell Distribution Width 13.2 % (11.0-16.0)
[2024-04-26 16:09] LABS: Calcium 10.1 mg/dL (8.4-10.2)
[2024-04-26 16:30] LABS: TSH reflex Free T4 5.02 uIU/mL (0.32-4.0)
[2024-04-26 16:32] LABS: Parathyroid Hormone Intact 54.2 pg/mL (8.7-77.1)
[2024-04-26 20:42] LABS: Free T4 (Free Thyroxine) 0.87 ng/dL (0.71-1.85)
== END 2024-04-26 13:39 | disposition home or self-care (01) ==
LOC: HO.LAB 13:38
PROVIDERS: PCP Physician Assistant; Visit Provider Physician Assistant
DX: K21.9 Gastro-esophageal reflux disease without esophagitis (principal); E21.3 Hyperparathyroidism, unspecified; R10.9 Unspecified abdominal pain; R11.10 Vomiting, unspecified; K51.20 Ulcerative (chronic) proctitis without complications; K22.70 Barrett's esophagus without dysplasia; D12.6 Benign neoplasm of colon, unspecified; K58.2 Mixed irritable bowel syndrome; R15.9 Full incontinence of feces; K30 Functional dyspepsia; R79.89 Other specified abnormal findings of blood chemistry; R11.2 Nausea with vomiting, unspecified; Z87.19 Personal history of other diseases of the digestive system
CPT/HCPCS: 36415; 82310; 83970; 84439; 84443; 85027; 99212

== ENCOUNTER 2024-04-26 15:10 | Outpatient (AMB) | payer OTHER, SELFPAY ==
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
[2024-04-26 15:25] VITALS: BP 128/98; PULSE 114
== END 2024-04-26 16:09 | disposition home or self-care (01) ==
PROVIDERS: PCP Physician Assistant; Visit Provider Nurse Practitioner
DX: K30 Functional dyspepsia (principal); K51.20 Ulcerative (chronic) proctitis without complications; K22.70 Barrett's esophagus without dysplasia; K21.9 Gastro-esophageal reflux disease without esophagitis; Z87.19 Personal history of other diseases of the digestive system; R79.89 Other specified abnormal findings of blood chemistry
CPT/HCPCS: 99214

== ENCOUNTER 2024-05-02 13:00 | Outpatient (RCR) | payer OTHER, SELFPAY ==
--- NOTE | 2024-04-13 17:42 | MHC.PT.EP ---
[facility] [place] [facility] [place] Office [place] Office [address] Gladys Yan [address] [phone] F: [phone] F: [phone] F: [phone] F: [phone] Physical Therapy Plan of Care Date of Evaluation: 04/13/24 Date of Surgery: Diagnosis: stress fracture L tibia, subsequent encounter with routine healing, PT for balance and lower extremity strengthening. Assessment: Pt is a 53 y/o female with Hx of colitis and trigeminal neuralgia who is referred to PT for eval and treat of stress fracture L tibia, subsequent encounter with routine healing, sp instructions for balance and lower extremity strengthening who reports she is persisting with gait dysfunction after 2022 L tibia fracture which is resulting in decreased tolerance for walking long distances, performing HH chores, walking on uneven terrain, as well as negotiating stairs secondary to decreased B LE strength, L knee pain, R LBP, decreased balance, and gait abnormality. Pt is deemed an appropriate candidate to receive skilled PT services to address their physical impairments in order to improve their functional ability. Frequency and Duration: The patient will be seen 2 x/ wk x 5 wks. Short Term Goals: initiate home program. Improve baseline pain to < 4/10; initial: 5/10. Correction Goals: I with home program. Pr will ascend 1 fl of stairs with reciprocal pattern. Improve LEFI outcome by at least 9 points. Pt will be able to perf mod tandem stance x 20 sec; initial unable. Improve B knee ext MMT by at lest 1/2 mmt grade. Treatment Plan: Modalities to reduce pain, spasms and effusion. Manual therapy to restore motion and function. Therapeutic exercise to improve strength and flexibility. Neuromuscular re-education for posture and balance. Therapeutic activities to return to functional activities of daily living. Electronically signed by: Rm Kirkpatrick PT. Please sign and return to therapist. Thank you for your referral.
--- NOTE | 2024-07-08 13:31 | MHC.PT.DC ---
[facility] [place] Office [place] Office [place] Office [address] Gladys Yan [address] [phone] F: [phone] F: [phone] F: [phone] F: [phone] Physical Therapy Discharge Report Diagnosis: stress fracture L tibia, subsequent encounter with routine heling, PT for balance and lower extremity strengthening. Date of Surgery: Date of Evaluation: 04/13/24 Date of Discharge: 07/08/24 Treatments to Date: 5 Cancellations to Date: 4 No Shows to Date: 2 Discharge Status: Visit Non-compliance Discharge Summary: Denice is being discharged today per our attendance policy after logging 4 cancellations and 2 no shows. Electronically signed by: mR Kirkpatrick PT. Please sign and return to therapist. Thank you for your referral.
== END 2024-07-08 13:31 | disposition home or self-care (01) ==
LOC: HO.PT 13:00
PROVIDERS: PCP Physician Assistant; Visit Provider Physician Assistant
DX: M84.362D Stress fracture, left tibia, subsequent encounter for fracture with routine healing (principal)
CPT/HCPCS: 97110; 97112; 97140; 97162

== ENCOUNTER 2024-05-09 08:03 | Day surgery (SDC) | payer OTHER, SELFPAY ==
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
[2024-05-09 08:44] VITALS: BMI 26.6
--- NOTE | 2024-05-09 08:48 | MHC.SHP ---
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 Pathological fracture Right arm pain Knee pain, left Trigeminal neuralgia Malpositioned intrauterine device Diarrhea Nausea and vomiting Otitis media Otalgia of left ear Breast cancer screening Tachycardia Screening for diabetes mellitus (DM) Screening) History of Previous Operations: Relevant previous surgery/procedure and date(s) ( History of salpingectomy Hx of oophorectomy History of esophagogastroduodenoscopy (EGD) Hx of colonoscopy) Allergies: Allergies Allergy/AdvReac Type Severity Reaction Status Date / Time Sulfa (Sulfonamide Allergy Unknown COLITIS, Verified 04/26/24 15:27 Antibiotics) stomach [SULFA (SULFONAMIDE upset, ANTIBIOTICS)] stomach upset clonidine AdvReac Intermediate Nightmare Verified 04/26/24 15:27 lorazepam [From ATIVAN] AdvReac Unknown AGITATION Verified 04/26/24 15:27 Review of Systems Sugical H&P ROS: Negative: Constitution, Cardiovascular, Respiratory, Neurological, Psychiatric, Hem-Onc, Allergic/Immunologic, Gastrointestinal, Genitourinary, Musculoskeletal, Integumentary, Endocrine and Eyes/Ears/Nose/Throat Exam Surgical H&P Exam: Normal: HEENT, Normal: Heart, Normal: Lungs, Normal: Extremities, Normal: Abdomen, Normal: Skin and Normal: Neurological Plan Diagnosis/Plan: Unchanged I have reviewed the history and physical and performed a pertinent physical examination on my patient. No changes have occurred unless specified. Time Spent With Patient Time: Total time managing care of this patient today ____ minutes.
[2024-05-09 08:58] VITALS: BP 144/98; PULSE 117; RESP 16; TEMP 37.1; O2SAT 97
[2024-05-09] MEDS: Lactated Ringers 1,000 ML 100 ML IVCONT (09:06)
--- NOTE | 2024-05-09 09:42 | P.OPN-COLO_ITS ---
Colonoscopy Operative Note Operative Note Date of Service: 05/09/24 Narrative: Operative Information Procedure Description: EGD, Colonoscopy Indication: Dyspepsia, diarrhea Anesthesia: MAC FLEXIBLE TRANSORAL UPPER GASTROINTESTINAL ENDOSCOPY AND COLONOSCOPY PROCEDURE NOTE UPPER ENDOSCOPY Consent: Indications for the procedure and potential complications of bleeding, perforation, reaction to medications and missed diagnosis were discussed with the patient and informed consent was obtained. Instrument: Olympus GIF H 190 J mid size upper endoscope Monitoring: Vital signs and clinical assessment, continuous EKG monitoring, Pulse oximetry, Carbon Dioxide monitoring and blood pressure monitoring were done throughout the procedure. Procedure: The patient was placed in the left lateral decubitis position and pre-procedure medications were administered and a bite block was placed. The endoscope was inserted into the mouth and advanced under direct vision to the third part of duodenum. A careful inspection was made as the upper endoscope was withdrawn including a retroflexed examination of the proximal stomach; Findings and interventions are described below. Findings: Larynx:normal Esophagus: GE junction at 30 cm, diaphragm hiatus at 35 cm, mild erosive esophagitis at GEJ with fixed hiatal hernia, 5 CM Stomach: Patchy erythema. Biopsies were obtained. Grade 2 flap valve on retroflexed examination of the cardia. Duodenum: Normal bulb and descending duodenum, bx taken Intervention: Biopsies as noted above, COLONOSCOPY Instrument: Olympus variable stiffness pediatric scope 190L Colonoscopy Monitoring: Vital signs and clinical assessment, continuous EKG monitoring, Pulse oximetry, Carbon Dioxide monitoring and blood pressure monitoring were done throughout the procedure. Colon withdrawal time was 7 minutes. Procedure: The patient was placed in the left lateral decubitis position and pre-procedure medications were administered. After a digital rectal examination of the ano-rectum, the video colonoscope was inserted into the rectum and advanced through the colon to the cecum/TI. The colonoscope was slowly withdrawn in a retrograde panoramic fashion and the colon mucosa was carefully examined including a retroflexed view of the rectum. Findings and interventions are described below. Procedure Difficulty:moderate Findings: Terminal Ileum-normal, bx taken Bx taken from right and left colon, stool samples sent as well Cecum:normal Ascending Colon: normal Transverse Colon -normal Descending Colon:normal Sigmoid Colon: normal Rectum: Retroflexion with small internal hemorrhoids, grade I Anorectum - normal Colon preparation: [place] Bowel Preparation Scale Right colon; 2 Transverse colon: 2 Left colon; 2 (0 = Unprepared colon segment with mucosa not seen due to solid stool that cannot be cleared. 1 = Portion of mucosa of the colon segment seen, but other areas of the colon segment not well seen due to staining, residual stool and/or opaque liquid. 2 = Minor amount of residual staining, small fragments of stool and/or opaque liquid, but mucosa of colon segment seen well. 3 = Entire mucosa of colon segment seen well with no residual staining, small fragments of stool or opaque liquid) Impression and Post Procedure Diagnosis: Endoscopy Findings: hiatal hernia gastritis esophagitis Colonoscopy Findings: internal hemorrhoids Plan: Await Pathology results Repeat Colonoscopy in 10 years or earlier if clinically indicated High fiber diet leaflet avoid straining at stool, epsom salts and sitz bath, anusol supps or cream Consider referral for hiatal hernia repair Above findings were reviewed with the patient and relevant handouts were provided if indicated.
[2024-05-09 09:47] VITALS: BP 117/88; PULSE 96; RESP 18; TEMP 36.8; O2SAT 99
[2024-05-09 10:02] VITALS: BP 121/86; PULSE 88; RESP 18; TEMP 36.6; O2SAT 95
[2024-05-09 10:42] LABS: CDiff Gene PCR NEGATIVE (Negative)
== END 2024-05-09 10:58 | disposition home or self-care (01) ==
PROVIDERS: PCP Physician Assistant; Visit Provider Internal Medicine Gastroenterology
PROC: (CPT 45380; principal; 2024-05-09 09:20)
DX: K58.2 Mixed irritable bowel syndrome (principal); K62.89 Other specified diseases of anus and rectum; R15.9 Full incontinence of feces; K51.20 Ulcerative (chronic) proctitis without complications; Z86.010 Personal history of colon polyps; K21.9 Gastro-esophageal reflux disease without esophagitis; K20.80 Other esophagitis without bleeding; K22.70 Barrett's esophagus without dysplasia; K30 Functional dyspepsia; K44.9 Diaphragmatic hernia without obstruction or gangrene; F32.A Depression, unspecified; F40.00 Agoraphobia, unspecified; R00.0 Tachycardia, unspecified; Z87.81 Personal history of (healed) traumatic fracture; Z79.60 Long term (current) use of unspecified immunomodulators and immunosuppressants; Z79.899 Other long term (current) drug therapy; Z99.89 Dependence on other enabling machines and devices; Z88.2 Allergy status to sulfonamides; Z88.8 Allergy status to other drugs, medicaments and biological substances; Z98.890 Other specified postprocedural states
CPT/HCPCS: 45380; 43239; 87493; 88305; 88313; 88342; J2704; Q9968

== ENCOUNTER → 2024-05-09 08:03 | Outpatient (BNV) | payer OTHER, SELFPAY | PROVIDERS: PCP Physician Assistant; Visit Provider Internal Medicine Gastroenterology | DX: K30 Functional dyspepsia (principal); K20.90 Esophagitis, unspecified without bleeding; K29.70 Gastritis, unspecified, without bleeding; R19.7 Diarrhea, unspecified; K64.0 First degree hemorrhoids | CPT/HCPCS: 43239; 45380 ==

== ENCOUNTER 2024-06-10 15:42 | Outpatient (AMB) | payer OTHER, SELFPAY ==
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
[2024-06-10 15:59] VITALS: BP 111/88; PULSE 124
== END 2024-06-10 16:29 | disposition home or self-care (01) ==
PROVIDERS: PCP Physician Assistant; Visit Provider Nurse Practitioner
DX: K21.9 Gastro-esophageal reflux disease without esophagitis (principal); K58.2 Mixed irritable bowel syndrome; K22.70 Barrett's esophagus without dysplasia; K51.20 Ulcerative (chronic) proctitis without complications; R11.2 Nausea with vomiting, unspecified; Z87.19 Personal history of other diseases of the digestive system
CPT/HCPCS: 99214

== ENCOUNTER 2024-06-10 15:42 | Outpatient (REF) | payer OTHER, SELFPAY | END 2024-06-10 15:43 | disposition home or self-care (01) | LOC: HO.LAB 15:42 | PROVIDERS: PCP Physician Assistant; Visit Provider Nurse Practitioner | DX: K21.9 Gastro-esophageal reflux disease without esophagitis (principal); K58.2 Mixed irritable bowel syndrome; K22.70 Barrett's esophagus without dysplasia; K51.20 Ulcerative (chronic) proctitis without complications; R11.2 Nausea with vomiting, unspecified; Z87.19 Personal history of other diseases of the digestive system | CPT/HCPCS: 99212 ==

== ENCOUNTER 2024-06-11 07:18 | Outpatient (REF) | payer OTHER, SELFPAY ==
[2024-06-11 08:00] LABS: MANUAL DIFF FLAG NO
[2024-06-11 08:22] LABS: Basophils Absolute Auto 0.1 X10*3/uL (0.0-0.2); Eosinophils Absolute Auto 0.3 X10*3/uL (0.0-0.4); Eosinophils Percent Auto 4.3 % (0-4); Hematocrit 48.6 % (37.0-47.0); Imm Gran Abs Auto 0.03 X10*3/uL (0.00-0.03); Imm Gran Pct Auto 0.4 % (0.0-0.4); Lymphocytes Absolute Auto 1.5 X10*3/uL (1.2-4.9); Lymphocytes Percent Auto 19.5 % (20-40); Mean Corpuscular Hemoglobin 32.3 pg (27.0-33.0); Mean Corpuscular Volume 92.2 fL (80.0-98.0); Mean Platelet Volume 10.4 fL (9.4-12.3); Monocytes Absolute Auto 0.7 X10*3/uL (0.1-1.2); Neutrophils Absolute Auto 5.1 x10*3/uL (2.0-8.3); Neutrophils Percent Auto 65.8 % (45-73); Red Blood Count 5.27 X10*6/uL (4.20-5.50); Red Cell Distribution Width 13.5 % (11.0-16.0); White Blood Count 7.7 X10*3/uL (4.8-10.8)
[2024-06-11 08:32] LABS: Platelet Count 158 X10*3/uL (160-400)
[2024-06-11 08:50] LABS: Alanine Aminotransferase 73 U/L (0-31); Albumin Level 4.2 g/dL (3.5-5.0); Alkaline Phosphatase 67 U/L (39-117); Amylase 96 U/L (28-100); Anion Gap 19 (12-20); Aspartate Amino Transferase 69 U/L (5-31); Bilirubin Total 2.5 mg/dL (0.0-1.0); Blood Urea Nitrogen 21 mg/dL (9-16); Calcium 9.8 mg/dL (8.4-10.2); Carbon Dioxide 30 mmol/L (22-29); Chloride 90 mmol/L (96-108); Estimated Glomerular Filt Rate > 60; Glucose Random 100 mg/dL (60-115); Lipase 32 U/L (8-78); Potassium 3.4 mmol/L (3.3-5.1); Sodium 136 mmol/L (135-145); Total Protein 7.1 g/dL (6.5-8.0)
[2024-06-11 08:54] LABS: Parathyroid Hormone Intact 101.3 pg/mL (8.7-77.1)
[2024-06-11 09:08] LABS: TSH reflex Free T4 3.72 uIU/mL (0.32-4.0)
== END 2024-06-11 07:19 | disposition home or self-care (01) ==
LOC: HO.LAB 07:18
PROVIDERS: Internal Medicine; PCP Physician Assistant; Visit Provider Nurse Practitioner
DX: R11.2 Nausea with vomiting, unspecified (principal); K21.9 Gastro-esophageal reflux disease without esophagitis; Z87.19 Personal history of other diseases of the digestive system; E03.9 Hypothyroidism, unspecified; M84.40XA Pathological fracture, unspecified site, initial encounter for fracture
CPT/HCPCS: 36415; 80053; 82150; 83690; 83970; 84443; 85025

== ENCOUNTER 2024-06-14 12:35 | Outpatient (REF) | payer OTHER, SELFPAY ==
[2024-06-14 14:32] LABS: CDiff Gene PCR NEGATIVE (Negative)
[2024-06-14 15:07] LABS: Adenovirus F 40/41 Not Detected (Not Detect.); Astrovirus Not Detected (Not Detect.); Campylobacter Not Detected (Not Detect.); Cryptosporidium Not Detected (Not Detect.); Cyclospora cayetanensis Not Detected (Not Detect.); E. coli EAEC Not Detected (Not Detect.); E. coli EPEC Not Detected (Not Detect.); E. coli ETEC Not Detected (Not Detect.); E. coli STEC Not Detected (Not Detect.); Entamoeba histolytica Not Detected (Not Detect.); Giardia lamblia Not Detected (Not Detect.); Norovirus GI/GII Not Detected (Not Detect.); Plesiomonas shigelloides Not Detected (Not Detect.); Rotavirus A Not Detected (Not Detect.); Salmonella Not Detected (Not Detect.); Sapovirus Not Detected (Not Detect.); Shigella sp./EIEC Not Detected (Not Detect.); Vibrio Not Detected (Not Detect.); Vibrio Cholerae Not Detected (Not Detect.); Yersinia enterocolitica Not Detected (Not Detect.)
== END 2024-06-14 12:36 | disposition home or self-care (01) ==
LOC: HO.LNP 12:35
PROVIDERS: Visit Provider Nurse Practitioner
DX: R11.2 Nausea with vomiting, unspecified (principal); K21.9 Gastro-esophageal reflux disease without esophagitis
CPT/HCPCS: 87493; 87507

== ENCOUNTER 2024-06-30 16:09 | Outpatient (AMB) | payer OTHER, SELFPAY ==
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
[2024-06-30 16:11] VITALS: BP 104/71; PULSE 104
== END 2024-06-30 16:42 | disposition home or self-care (01) ==
PROVIDERS: PCP Physician Assistant; Visit Provider Nurse Practitioner
DX: K30 Functional dyspepsia (principal); K58.2 Mixed irritable bowel syndrome; K21.9 Gastro-esophageal reflux disease without esophagitis; D12.6 Benign neoplasm of colon, unspecified; K22.70 Barrett's esophagus without dysplasia; K44.9 Diaphragmatic hernia without obstruction or gangrene
CPT/HCPCS: 99213

== ENCOUNTER → 2024-06-30 16:09 | Outpatient (BNVA) | payer OTHER, SELFPAY | PROVIDERS: PCP Physician Assistant; Visit Provider Nurse Practitioner | DX: K58.2 Mixed irritable bowel syndrome (principal); K21.9 Gastro-esophageal reflux disease without esophagitis; K30 Functional dyspepsia; K22.70 Barrett's esophagus without dysplasia; K44.9 Diaphragmatic hernia without obstruction or gangrene; D12.6 Benign neoplasm of colon, unspecified | CPT/HCPCS: 99212 ==

== ENCOUNTER 2024-07-01 09:38 | Outpatient (AMB) | payer OTHER, SELFPAY ==
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
[2024-07-01 09:50] VITALS: BP 126/82; PULSE 112; TEMP 36.8; O2SAT 95
== END 2024-07-01 11:07 | disposition home or self-care (01) ==
PROVIDERS: PCP Physician Assistant; Visit Provider Surgery
DX: K44.9 Diaphragmatic hernia without obstruction or gangrene (principal)
CPT/HCPCS: 99204

== ENCOUNTER → 2024-07-01 09:38 | Outpatient (BNVA) | payer OTHER, SELFPAY | PROVIDERS: PCP Physician Assistant; Visit Provider Surgery | DX: K44.9 Diaphragmatic hernia without obstruction or gangrene (principal) | CPT/HCPCS: 99202 ==

== ENCOUNTER 2024-08-04 08:24 | Outpatient (REF) | payer OTHER, SELFPAY ==
--- NOTE | ~2024-08-04 | FL_ITS ---
EXAMINATION: XR FLUOROSCOPY UPPER GI WITH AIR CLINICAL INFORMATION: Reflux. Hiatal hernia. COMPARISON: None TECHNIQUE: Fluoroscopic air contrast upper GI examination was performed utilizing standard techniques with thin and thick barium and effervescent granules. Numerous spot images were obtained. FINDINGS: Dual and single contrast images of the esophagus demonstrate a normal caliber, contour, and mucosal pattern. No evidence of stricture, mass, or ulcerations identified. There is to and fro motion of the barium column with nonpropulsive tertiary contractions noted throughout the esophagus. A small type I hiatal hernia is present. No significant gastroesophageal reflux was seen during the course of the examination and on reflux views. Dual contrast and single contrast images of the stomach demonstrated a normal contour. There are multiple foci of contrast pooling in the body the stomach that may represent small superficial aphthous ulcers. No masses are present. Contrast freely passed into the gastric antrum and duodenal bulb without delay. Single and air-contrast images of the duodenal bulb demonstrate no abnormality. The duodenal sweep has a normal appearance, course, and mucosal fold appearance. The imaged proximal jejunum has a normal fold pattern and caliber. An intrauterine device is present in the right mid abdomen. FLUOROSCOPY TIME: 4 minutes 36 seconds Number of Spot Images: 8 Number of Cine: 13 DOSE AREA PRODUCT: 2226 uGy-m2 (microgray-meter squared) FL/FL barium swallow with air IMPRESSION: 1. Esophageal dysmotility. 2. Small type I hiatal hernia. 3. Multiple foci of contrast pooling in the body of the stomach that may present small superficial aphthous ulcers. Recommend correlation with EGD. 4. Displaced intrauterine device is located in the right mid abdomen. Compared to CT in February 2022, the location of this device is unchanged. This procedure was performed by Shlomo Saleh PA-C, and supervised by Dr. Gonsalez Electronically signed by: Salvatore Gonsalez MD 08/05/2024 12:58 PM EDT
== END 2024-08-04 08:25 | disposition home or self-care (01) ==
LOC: HO.US 08:24
PROVIDERS: PCP Physician Assistant; Visit Provider Nurse Practitioner
DX: K21.9 Gastro-esophageal reflux disease without esophagitis (principal)
CPT/HCPCS: 74221

== ENCOUNTER → 2024-08-04 08:26 | Outpatient (BNV) | payer OTHER, SELFPAY | PROVIDERS: PCP Physician Assistant; Visit Provider Physician Assistant Surgical | DX: K44.9 Diaphragmatic hernia without obstruction or gangrene (principal); K21.9 Gastro-esophageal reflux disease without esophagitis | CPT/HCPCS: 74246 ==

== ENCOUNTER 2024-08-08 15:24 | Outpatient (REF) | payer OTHER, SELFPAY ==
--- NOTE | ~2024-08-08 | US_ITS ---
EXAMINATION: US COMPLETE ABDOMEN WITH LIVER ELASTOGRAPHY CLINICAL INFORMATION: Jaundice. COMPARISON: Abdominal ultrasound dated April 24, 2023. CT scan dated February 25, 2022. TECHNIQUE: Real-time imaging of the abdominal viscera. Noninvasive ultrasound liver fibrosis assessment is performed using Tristin ElastPQ point quantification shear wave elastography (pSWE) with a C5-2 MHz transducer. Multiple elastography samples are obtained. FINDINGS: PANCREAS: Head and body appear unremarkable. Tail not visualized. ABDOMINAL AORTA: The proximal, middle, and distal aortic segments are unremarkable in caliber. INFERIOR VENA CAVA: Visualized portions appear unremarkable. LIVER: Liver appears unremarkable in size, contour and echogenicity. No focal lesion or intrahepatic biliary duct dilatation identified. The right lobe measures 14.3 cm in length. The left lobe measures 8.5 cm in length. Portal flow is towards the liver (hepatopetal). Shear wave liver elastography median stiffness is 1.75 m/s (reference: normal median stiffness is 1.3 m/s or less). IQR/median stiffness to assess sampling precision is 0.09 (reference: good quality data set is IQR/median stiffness of 0.15 or less). GALLBLADDER: The gallbladder is physiologically distended without evidence of stones, sludge, polyps, wall thickening or pericholecystic fluid. Technologist reports a negative sonographic Keller's sign. COMMON BILE DUCT: Normal in caliber measuring 0.3 cm in diameter. RIGHT KIDNEY: No hydronephrosis. No renal calculi or focal parenchymal lesion identified. The kidney measures 9.9 cm in maximum dimension. LEFT KIDNEY: No hydronephrosis. Suspect benign left parapelvic simple cysts for which no further dedicated follow-up imaging as indicated. No renal calculi or suspicious focal parenchymal lesion identified. The kidney measures 10.4 cm in maximum dimension. SPLEEN: Normal. The spleen measures 8.1 cm in maximum dimension. FREE FLUID: None. US/US abdomen comp w elastography IMPRESSION: Liver elastography: Measurements are suggestive of compensated advanced chroniic liver disease but need further test for confirmation. REFERENCE: Society of Radiologists in Ultrasound Liver Stiffness Thresholds (2020): LIVER STIFFNESS THRESHOLDS: *Liver Stiffness equal or less than 1.3 m/s: High probability of being normal. *Liver Stiffness less than 1.7 m/s: In the absence of other known clinical signs, rules out compensated advanced chronic liver disease. *Liver Stiffness 1.7-2.1 m/s: Suggestive of compensated advanced chronic liver disease but need further test for confirmation. *Liver Stiffness over 2.1 m/s: Rules in compensated advanced chronic liver disease. *Liver Stiffness over 2.4 m/s: Suggestive of clinically significant portal hypertension. QUALITY OF DATA SET: *IQR/Median value equal or less than 0.15 implies a quality data set. *IQR/Median value over 0.15 implies a poor quality data set. SIGNIFICANT CHANGE FROM PRIOR EXAM: Significant change if liver stiffness measurement is 10% or greater from prior exam. OTHER CONSIDERATIONS: The stage of liver fibrosis may be overestimated in the setting of acute hepatitis, liver inflammation, elevated liver function tests, hepatic vascular congestion, obstructive cholestasis, non-fasting state, and infiltrative diseases such as amyloidosis and lymphoma. In some patients with NAFLD, the liver stiffness thresholds for compensated advanced chronic liver disease may be lower. In causes other than viral hepatitis and NAFLD, liver stiffness thresholds are not well established. Electronically signed by: Salomon Gill MD 08/09/2024 12:15 PM [facility] [place]
== END 2024-08-08 15:25 | disposition home or self-care (01) ==
LOC: HO.US 15:24
PROVIDERS: PCP Physician Assistant; Visit Provider Surgery
DX: K44.9 Diaphragmatic hernia without obstruction or gangrene (principal); D69.6 Thrombocytopenia, unspecified; R11.2 Nausea with vomiting, unspecified; K21.9 Gastro-esophageal reflux disease without esophagitis; R17 Unspecified jaundice
CPT/HCPCS: 71046; 76700; 76981

== ENCOUNTER 2024-08-11 15:20 | Outpatient (AMB) | payer OTHER, SELFPAY ==
[2024-08-11 15:24] VITALS: BP 92/63; PULSE 107
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
== END 2024-08-11 16:03 | disposition home or self-care (01) ==
LOC: HO.HGI 15:20
PROVIDERS: PCP Physician Assistant; Visit Provider Nurse Practitioner
DX: K44.9 Diaphragmatic hernia without obstruction or gangrene (principal); K22.70 Barrett's esophagus without dysplasia; R11.2 Nausea with vomiting, unspecified
CPT/HCPCS: 99213

== ENCOUNTER → 2024-08-11 15:20 | Outpatient (BNVA) | payer OTHER, SELFPAY | PROVIDERS: PCP Physician Assistant; Visit Provider Nurse Practitioner | DX: K30 Functional dyspepsia (principal); K58.2 Mixed irritable bowel syndrome; K21.9 Gastro-esophageal reflux disease without esophagitis; K22.70 Barrett's esophagus without dysplasia; K44.9 Diaphragmatic hernia without obstruction or gangrene; D12.6 Benign neoplasm of colon, unspecified; R11.2 Nausea with vomiting, unspecified | CPT/HCPCS: 99212 ==

== ENCOUNTER 2024-09-21 14:16 | Outpatient (AMB) | payer OTHER, SELFPAY ==
[2024-09-21 14:26] VITALS: BP 90/74; PULSE 109
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
== END 2024-09-21 15:16 | disposition home or self-care (01) ==
PROVIDERS: PCP Physician Assistant; Visit Provider Nurse Practitioner
DX: K58.2 Mixed irritable bowel syndrome (principal); K44.9 Diaphragmatic hernia without obstruction or gangrene; K22.70 Barrett's esophagus without dysplasia; K21.9 Gastro-esophageal reflux disease without esophagitis; K51.20 Ulcerative (chronic) proctitis without complications; R74.01 Elevation of levels of liver transaminase levels
CPT/HCPCS: 99213

== ENCOUNTER → 2024-09-21 14:16 | Outpatient (BNVA) | payer OTHER, SELFPAY | PROVIDERS: PCP Physician Assistant; Visit Provider Nurse Practitioner | DX: K58.2 Mixed irritable bowel syndrome (principal); K44.9 Diaphragmatic hernia without obstruction or gangrene; K22.70 Barrett's esophagus without dysplasia; K21.9 Gastro-esophageal reflux disease without esophagitis; K51.20 Ulcerative (chronic) proctitis without complications; R74.01 Elevation of levels of liver transaminase levels | CPT/HCPCS: 99212 ==

== ENCOUNTER 2024-11-14 13:37 | Outpatient (AMB) | payer OTHER, SELFPAY ==
[2024-11-14 13:55] VITALS: BP 102/78; PULSE 113; TEMP 36.2; O2SAT 96
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
--- OUTSIDE RECORDS SUMMARY | 2024-11-14 14:47 | XMS_ITS | Encounter Summary ---
Author Organization [employer] [facility] Address [address] [place] [address] Care Team Providers Care Dietitian Research Name Role Phone Unavailable Primary Care Provider Unavailabl e Reason for Visit * Reason Onset Date Comments speak to provider 05/12/2024 Encounter Details Date Type Department Care Team (Late Contact Info) Description 05/12/2024 Telephone [facility] [address] [place] [address] Jairo Diaz DDS [address] [place] [address] speak to provider Social History Tobacco Use Types Packs/Day Years Used Date Smoking Tobacco: Some Days Cigarettes Smokeless Tobacco: Never Comments Unknown Sex and Gender Information Value Date Recorded Sex Assigned at Female 08/04/2022 10:31 AM EDT Legal Sex Female 10:31 AM EDT Gender Identity Choose not to disclose 10:31 AM EDT Sexual Orientation Choose not to disclose 2021 10:31 AM EDT documented as of this encounter Miscellaneous Notes * Telephone Encounter - Kendal Sue - 05/12/2024 8:08 AM EDT Patient called to speak to provider. Please give patient a call to talk about tooth that has been extracted recently. It has been causing pain. Patient refused to come in for emergency appt. CS documented in this encounter Plan of Treatment Upcoming Encounters Date Type Department Care Team (Late Contact Info) Description 11/25/2024 3:00 PM EST Office Visit [facility] [address] [place] [address] Tash Wagoner, RAMONS [address] [place] [address] 01/19/2025 3:00 PM EDT Office Visit [facility] [address] [place] [address] Coreen Beltran [address] [place] [address] documented as of this encounter Visit Diagnoses Not on filedocumented in this encounter
--- OUTSIDE RECORDS SUMMARY | 2024-11-14 14:48 | XMS_ITS | Encounter Summary ---
Author Organization [employer] Address [address] [facility] [address] [place] [address] Care Team Providers Care It Technician Name Role Phone Unavailable Primary Care Provider Unavailabl e Reason for Visit * Reason Onset Date Comments Appointment 01/02/2023 Encounter Details Date Type Department Care Team ([facility] st Contact Info) Description 01/02/2023 Telephone [facility] DENTAL [address], [place] [id number] Tash Wagoner, DDS [address] [place], [place] [phone] Appointment Social History Tobacco Use Types Packs/Day Years Used Date Smoking Tobacco: Some Days Cigarettes Smokeless Tobacco: Never Comments Unknown Sex and Gender Information Value Date Recorded Sex Assigned at Female 08/04/2022 10:31 AM EDT Legal Sex Female 10:31 AM EDT Gender Identity Choose not to disclose 10:31 AM EDT Sexual Orientation Choose not to disclose 2021 10:31 AM EDT COVID-19 Exposure Response Date Recorded In the last 10 days, have yo u been in contact with someone who was confirmed or suspected to have Coronavirus/COVID-19? No / Unsure 01/02/2023 12:37 PM EDT documented as of this encounter Miscellaneous Notes * Telephone Encounter - Gaby Salomon - 01/02/2023 9:15 AM EDT Denice Woodson 1970 Patient is coming in on 01/02 for a emergency visit but I booked her to come in for 11:30 but me and jw booked her patient and I booked my patient at the same timeso I called my patient back and left a voice mail and moved her down for 1:00 just wanted to document this documented in this encounter Plan of Treatment Upcoming Encounters Date Type Department Care Team (Late st Contact Info) Description 11/25/2024 3:00 PM EST Office Visit [facility] ADULT DENTAL [address] [place] [address] Tash Wagoner DDS [address] [place] [address] 01/19/2025 3:00 PM EDT Office Visit [facility] ADULT DENTAL [address] [place] [address] Coreen Beltran [address] [place] [address] documented as of this encounter Visit Diagnoses Not on filedocumented in this encounter
--- OUTSIDE RECORDS SUMMARY | 2024-11-14 14:48 | XMS_ITS | Data Portability ---
Author Organization [facility], [facility] Address [address] [place] [address] Care Team Providers Care Scraper Loader Operator Name Role Phone ELVA CHERRY Primary Care Provider Assessment No assessment recorded. Plan of Treatment Reminders Order Date Submit Date Provider Last Modified By Organization Details Last Modified Time Details Appointments None recorded. Lab rapid SARS CoV 2 Ag, QL IA, respiratory specimen 2022 [place] [id number], [address] [place] [address], [phone], 3 19:37:21 rapid flu (A+B) 2022 [address] [place] [address], [address] [place] [address], [phone], 3 19:37:21 Referral None recorded. Procedures None recorded. Surgeries None recorded. Imaging None recorded. Medication Orders prednisone 20 mg tablet 2022 [facility] [place]- , [address] [place], [place], [phone], 3 19:37:30 albuterol sulfate HFA 90 mcg/actuati on aerosol inhaler 2022 [facility] [place] , [address] [place], [place], [phone], 19:37:30 Patient TargetsNo targets recorded. Patient Instructions Encounter Date Encounter Id Patient Instructions Last Modified By Organization Details Last Modified Time 11/27/2022 [id number] bronchitis: care instructions jackie [email or web address] Not available 11/27/2022 19:37:21 Reason for Referral None Reported. Results Created Date Observation Date Name Description Value Unit Range Abnormal Flag Note LastModifiedBy Organization Detail LastModifiedTime 11/27/1911/27/2022 rapid flu (A+B) Unknown Analyte Normal = Negati ve Not Available [address] [place], [place] [address], [address], 11/27/2022 18:43:23 11/27/1911/27/2022 rapid flu (A+B) Unknown Analyte negati ve Not Available [address] [place] [address] [place], [address], 11/27/2022 18:43:23 11/27/19 23 11/27/2022 rapid flu (A+B) Unknown Analyte Normal = Negati ve Not Available [address] [place] [address] [place], [address], 11/27/2022 18:43:23 11/27/19 23 11/27/2022 rapid flu (A+B) Unknown Analyte negati ve Not Available [address] [place] [address] [place], [address], 11/27/2022 18:43:23 11/27/19 23 11/27/2022 rapid SARS CoV 2 Ag, QL IA, respi rator y speci men Unknown Analyte Normal =Negat tom Not Available [address] [place], [address], 11/27/2022 18:17:52 11/27/19 23 11/27/2022 rapid SARS CoV 2 Ag, QL IA, respi rator y speci men Unknown Analyte negati ve Not Available [address], [place], [address], 11/27/2022 18:17:52 Result Notes None recorded. Problems Name Problem SNOMED Code Status Onset Date Resolution Date Notes Provider Name and Address Organization Details Recorded Time Gastroesophage al reflux disease 593897660 Active 2022 Trisha arroyo, PA - [facility] 3 18:25:07 Acid reflux 947613892 Active 2022 Trisha Taisteve null, PA - [facility] 3 18:25:14 Hiatal hernia 09934045 Active 2022 Trisha Norwood null, PA - [facility] 3 18:25:23 Samuels's esophagus 637389712 Active 2022 Trisha Norwood null, PA - [facility] 3 18:25:44 Chronic vomiting 21256853 Active 2022 Trisha Taisteve null, PA - [facility] 3 18:26:14 Inflammatory bowel disease 15012810 Active 2022 Trisha Taisteve null, PA - [facility] 3 18:26:24 Ulcerative colitis 58505782 Active 2022 Trisha Taisteve null, PA - [facility] 3 18:26:35 Hypercholester olemia 95706362 Active 2022 Trisha Taisteve null, PA - [facility] 3 18:26:46 Trigeminal neuralgia 94117556 Active 2022 Trisha Taisteve null, PA - [facility] 3 18:27:35 Problem Notes None recorded. Procedures Surgical History Date Name Laterality Status Provider Name and Address Organization Details Recorded Time oophorectomy completed Trisha Taisteve PA - [facility] 11/27/2022 18:30:29 Imaging Results None recorded. Procedure Notes None recorded. Medical Equipment None Reported. Allergies Allergen ID Allergen Name Allergen Category Reaction Reaction Severity Criticality Documentation Date Start Date Code Code System Note Provider Name and Address Organization Details Recorded Time 20670209 Substance with sulfonami de structure and antibacte rial mechanism of action (substanc e) medicatio n Not available Not available Not available 11/27/2022 46022 8003 SNOMED cause s colit is flare ups Trisha Norwood dina PA - [facility] 3 18:20:46 402060 Ativan medicatio n Not available Not available Not available 11/27/202242973 9 RxNorm Trisha Norwood dina, PA - [facility] 3 18:20:53 342496 mold extract environme nt Not available Not available Not available 11/27/2022 57243 8 RxNorm Trisha Norwood dina, PA - [facility] 3 18:21:12 976472 grass pollen environme nt,medica tion Not available Not available Not available 11/27/2022 09926 UNK Trisha Norwood dina, PA - [facility] 3 18:21:17 658693 clonidine medicatio n Not available Not available Not available 11/27/2022 2599 RxNorm Trisha Norwood dina, PA - [facility] 3 18:22:35 Medications Name Sig Start Date Stop Date Status Note LastModified by Organization Details LastModified Time buspirone 5 mg tablet 11/27 completed Not Available Not Available Not Available bupropion HCl SR 150 mg tablet,12 hr sustained-r elease 11/27 completed Not Available Not Available Not Available clonidine HCl 0.1 mg tablet 11/27 completed Not Available Not Available Not Available sucralfate 1 gram tablet active Not Available Not Available Not Available famotidine 40 mg tablet active Not Available Not Available Not Available prednisone 20 mg tablet Take 2 tablets every day by oral route in the morning for 5 days. active Not Available Not Available No t Available clonazepam 1 mg tablet active Not Available Not Available Not Available azathioprin e 50 mg tablet active Not Available Not Available Not Available metoclopram veronika 5 mg tablet active Not Available Not Available Not Available baclofen 10 mg tablet active Not Available Not Available No t Available pantoprazol e 40 mg tablet,emmanuel yed release active Not Available Not Available Not Available simvastatin 20 mg tablet active Not Available Not Available Not Available buspirone 10 mg tablet 11/27 completed Not Available Not Available Not Available promethazin e 25 mg tablet active Not Available Not Available Not Available ondansetron 4 mg disintegrat ing tablet active Not Available Not Available N ot Available fluticasone propionate 50 mcg/actuati on nasal spray,suspe nsion active Not Available Not Available Not Available Ventolin HFA 90 mcg/actuati on aerosol inhaler Inhale 1 puff every 4 hours by inhalatio n route as needed. active Not Available Not Available No t Available buspirone 15 mg tablet active Not Available Not Available Not Available escitalopra m 10 mg tablet 11/27 completed Not Available Not Available Not Available carbamazepi ne ER 300 mg capsule,ext ended release [id number] active Not Available Not Available N ot Available diclofenac 1 % topical gel active Not Available Not Available Not Available Vitals Date Recorded Body height Body mass index (BMI) Body weight Pain severity - 0-10 verbal numeric rating [Score] - Reported Oxygen saturation Oxygen saturation in Arterial blood by Pulse oximetry Heart rate Respiratory rate Body temperature Systolic blood pressure Diastolic blood pressure Provider Name and Address Organization Details Last Updated DateTime 3 154.94 cm 20.8 kg/m2 42156.1 6 g 3 97 % 97 % 116 /min 18 /min 98.5 [degF] 117 mm[Hg] 86 mm[Hg] Trisha VILLARREAL - [facility] 18:34:29 Social History Question Answer Notes LastModified by Organizat ion Details LastModified Time Tobacco Smoking Status Current Every Day Smoker 2 cigarette s/day Trisha arroyo PA - [facility] 11/27/2022 18:29:47 What Is Your Level Of Alcohol Consumption? Occasional Information not available 11/27/2022 How Many Times Per Week Do You Consume Alcohol? 1-2 Times Per Week Information not available 11/27/2022 Do You Use Any Illicit Or Recreational Drugs? No Information not available 11/27/2022 Have You Recently Traveled Abroad? No Information not available 11/27/2022 Do You Or Have You Ever Used Any Other Forms Of Tobacco Or Nicotine? No Information not available 11/27/2022 Sex: Unknown Functional Status None recorded. Mental Status None recorded. Family History Relationship Description Onset Age of this Age Resolved Age Notes LastModified by Organization Details LastModified Time Mother Hernia of abdominal cavity [email or web address] Not available 2022 18:28:20 Father Hernia of abdominal cavity [email or web address] Not available 2022 18:28:20 Sister Hernia of abdominal cavity [email or web address] Not available 2022 18:28:20 Medical History No medical history recorded. Immunizations Vaccine Type Date Status Note Provider Nam e and Address Organization Details Recorded Time zoster recombinant 2 completed Trisha Monfette null, PA - [facility] 11/27/2022 18:19:28 zoster recombinant 1 completed Trisha Monfette null, PA - [facility] 11/27/2022 18:19:28 COVID-19, mRNA, LNP-S, PF, 100 mcg/0.5mL dose or 50 mcg/0.25mL dose 1 completed Trisha Monfette null, PA - [facility] 11/27/2022 18:19:28 COVID-19, mRNA, LNP-S, PF, 30 mcg/0.3 mL dose 1 completed Trisha Monfette null, PA - [facility] 11/27/2022 18:19:28 COVID-19, mRNA, LNP-S, PF, 30 mcg/0.3 mL dose 1 completed Trisha Monfette null, PA - [facility] 11/27/2022 18:19:28 COVID-19, mRNA, LNP-S, PF, 30 mcg/0.3 mL dose, rebeka-sucrose 2 completed Trisha Monfette null, PA - [facility] 11/27/2022 18:19:28 pneumococcal polysaccharide PPV23 8 completed Trisha Lujanfette null, PA - [facility] 11/27/2022 18:19:28 Tdap 8 completed Trisha Norwood null, PA - [facility] 11/27/2022 18:19:28 Hep B, unspecified formulation 6 completed Trisha Norwood null, PA - [facility] 11/27/2022 18:19:28 Hep B, unspecified formulation 6 completed Trisha Norwood null, PA - [facility] 11/27/2022 18:19:28 Past Encounters Encounter ID Performer Location Encounter Start Date Encounter Closed Date Diagnosis/Indication Diagnosis SNOMED-CT Code Diagnosis ICD10 Code Diagnosis Note [id number] CHERELLE ROWLAND [address] [place] [address] 11/27/2022 16:49:53 11/27/2022 19:39:38 Acute upper respiratory infection 03814635 J06.9 Acute bronchitis 2420862 2 J20.9 Health Concerns Section Related Observation LastModified by Organization Detai ls LastModified Time None Recorded Concern Status LastModified by Organization Details LastModified Time None Recorded Advance Directives Directive None Recorded Payers Encounter Date Sequence Insurance Name Policy Number Policy Mckeon Covered Member ID Mckeon Member ID Guarantor Name 11/27/2022 1 [facility] ([facility] EKTA Woodson [id number] Denice Woodson Notes Date Note Type Note Provider Name and Address Organization Details Recorded Time 11/27/2022 text/html Denice is a 52 yo F here for chest/lung congestion/disc omfort and coughing up clear mucous x6 days, no known exposure to covid, took home covid test and was negative, requests rapid covid and flu tests. CHERELLE DOMINGUEZ [facility] [place], [place], [address], [place] - [facility] 11/27/2022 19:38:47
--- OUTSIDE RECORDS SUMMARY | 2024-11-14 14:48 | XMS_ITS | Encounter Summary ---
Author Organization [facility] Address [address] [facility] [address] [place] [address] Care Team Providers Care Sql Consultant Name Role Phone Unavailable Primary Care Provider Unavailabl e Reason for Visit * Reason Comments add tooth partial Encounter Details Date Type Department Care Team (Late st Contact Info) Description 10/27/2024 1:30 PM EST Office Visit [facility] ADULT DENTAL [address] [place] [address] Tash Wagoner DDS [address] [place] [address] Tooth missing (Primary Dx) Social History Tobacco Use Types Packs/Day Years [...] AM EDT documented as of this encounter Progress Notes * Tash Wagoner DDS - 10/27/2024 1:30 PM EST Patient ID: Denice Woodson is a 54 y.o. adult. Time Out: No data recorded Location: [facility] Tooth: Maxilla Procedure: Dentures impressions Verified the above with patient, human services assistant, and provider. Confirmed via patient's chart, intraorally and by radiographs. Mobile Therapist: not applicable Chief Complaint Patient presents with add tooth partial Medical Hx: Vitals: There were no vitals taken for this visit. Medications, Med Hx reviewed with patient and updated in chart. Consent Obtained: The risks, benefits, indications, potential complications, and alternatives were explained to the patient and informed consent was obtained with good understanding. Treatment Provided: Dental procedures in this visit D5750.1 - DENTURE IMPRESSION (Completed) Service provider: Tash Wagoner DDS Billing provider: Tash Wagoner DDS Impression taken with [place] of Maxilla Case sent to lab to add tooth #4 to upper RPD Lab used: [facility] Lab Lab Due Date: 10/28/2024 @ noon Patient discharged alert, oriented, and in stable condition. NV: Delivery repaired RPD Lean Manufacturing Engineer: Trisha Landers Dentist: Tash Wagoner DDS documented in this encounter Plan of Treatment Upcoming Encounters Date Type Department Care Team (Late st Contact Info) Description 11/25/2024 3:00 PM EST Office Visit [facility] ADULT DENTAL [address] [place] [address] Tash Wagoner DDS [address] [place] [address] 01/19/2025 3:00 PM EDT Office Visit [facility] ADULT DENTAL [address] [place] [address] Coreen Beltran [address] [place] [address] Scheduled Orders Name Type Priority Associated Diagnoses Orde r Schedule DENTAL LAB DENTURES AND PARTIALS Dental Routine Ordered: 025 documented as of this encounter Procedures Procedure Name Priority Date/Time Associated Diagnosis Comments DENTURE IMPRESSION Routine 10/27/2024 1:30 PM EST documented in this encounter Visit Diagnoses Diagnosis Tooth missing- Primary documented in this encounter
--- OUTSIDE RECORDS SUMMARY | 2024-11-14 14:48 | XMS_ITS | Clinical Summary ---
Author Organization [facility] Address [address] [place] [address] Care Team Providers Care Wireless Sales Expert Name Role Phone Unavailable Primary Care Provider Unavailabl e Social History Tobacco Use Types Packs/Day Years Used Date Smoking Tobacco: Never Assessed Comments Unknown Sex and Gender Information Value Date Recorded Sex Assigned at Not on file Legal Sex Female 1:27 PM EDT Gender Identity Not on file Sexual Orientation Not on file Plan of Treatment Health Maintenance Due Date Last Done Comments Hepatitis C Screening 1970 Pap Smear 1986 DTaP/Tdap/Td (1 - Tdap) 1988 Hep B (1 of 3 - 19+ 3-dose series) 1989 Mammogram/Breast Imaging 2010 Pneumococcal 50+ years (1 of 1 - PCV) 2020 Zoster (Shingrix) (1 of 2) 2020 COVID-19 Vaccine ( - 2023-2 5 season) 2024 Influenza (#1) 2024 HPV Vaccine Aged Out No longer eligi ble based on patient's age to complete this topic Hep A Aged Out No longer eligi ble based on patient's age to complete this topic Hib Aged Out No longer eligi ble based on patient's age to complete this topic Meningococcal ACWY Aged Out No longer eligible based on patient's age to complete this topic Insurance [employer] FFS PPO PLAN
--- OUTSIDE RECORDS SUMMARY | 2024-11-14 14:48 | XMS_ITS | Encounter Summary ---
Author Organization [employer] Address [address] [place] [address] Care Team Providers Care Quilting Supervisor Name Role Phone Unavailable Primary Care Provider Unavailabl e Reason for Visit * Reason Onset Date Comments Appointment 02/05/2023 Encounter Details Date Type Department Care Team (Late st Contact Info) Description 02/05/2023 Telephone [facility] [address] [place] [address] Tash Wagoner, DDS [address] [place] [address] Appointment Social History Tobacco Use Types Packs/Day [...] * Telephone Encounter - Gaby Salomon - 02/12/2023 10:51 AM EDT Denice Woodson 1970 Patient was seen on 01/02/2023 for emergency visit and was given medication/ antibiotic and patient stated that its upsetting her stomach and was wondering if amoxicillin can be sent to the pharmacy patient also stated she is getting swollen again but has appt on [id number] at a different office please advise. documented in this encounter Plan of Treatment Upcoming Encounters Date Type Department Care Team (Late st Contact Info) Description 11/25/2024 3:00 PM EST Office Visit [facility] ADULT DENTAL [address] [place] [address] Tash Wagoner, RAMONS [address] [place] [address] 01/19/2025 3:00 PM EDT Office Visit [facility] ADULT DENTAL [address] [place] [address] Coreen Beltran [address] [place] [address] documented as of this encounter Visit Diagnoses Not on filedocumented in this encounter
--- OUTSIDE RECORDS SUMMARY | 2024-11-14 14:48 | XMS_ITS | Encounter Summary ---
Author Organization [employer] [facility] Address [address] [facility] [address] [place] [address] Care Team Providers Care Tour Actor Name Role Phone Unavailable Primary Care Provider Unavailabl e Encounter Details Date Type Department Care Team (Latest Contact Info) Description 09/05/2021 Abstract [facility] CONVERSIONS Dental, Provider, DDS Social History Tobacco Use Types Packs/Day Years Used Date Smoking Tobacco: Never Assessed Comments Unknown Sex and Gender Information Value Date Recorded Sex Assigned at Female 08/04/2022 10:31 AM EDT Legal Sex Female 10:31 AM EDT Gender Identity Choose not to disclose 10:31 AM EDT Sexual Orientation Choose not to disclose 2021 10:31 AM EDT documented as of this encounter Plan of Treatment Upcoming Encounters Date Type Department Care Team (Late st Contact Info) Description 11/25/2024 3:00 PM EST Office Visit [facility] ADULT DENTAL [address] [place] [address] Adamson-Hauser, Tash, DDS [address] [place] [address] 01/19/2025 3:00 PM EDT Office Visit [facility] ADULT DENTAL [address] [place] [address] Devin, Coreen [address] [place] [address] documented as of this encounter Visit Diagnoses Not on filedocumented in this encounter
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
--- OUTSIDE RECORDS SUMMARY | 2024-11-14 14:48 | XMS_ITS | Encounter Summary ---
Author Organization [employer] [facility] Address [address] [place] [address] Care Team Providers Care Beading Sawyer Name Role Phone Unavailable Primary Care Provider Unavailabl e Reason for Visit * Reason Comments Dentures Encounter Details Date Type Department Care Team (Late st Contact Info) Description 11/01/2024 10:00 AM EST Office Visit [facility] [address] [place] [address] Tash Wagoner DDS [address] [place] [address] Social History Tobacco Use Types Packs/Day Years [...] Progress Notes * Tash Wagoner DDS - 11/01/2024 10:00 AM EST Pt in office for delivery of repaired Rpd. RPD to be sent back to [facility] in order to adapt better RPD to palate and UR side. Pt to return next for delivery. documented in this encounter Miscellaneous Notes * Addendum Note - Tash Wagoner DDS - 11/01/2024 10:00 AM ESTAddended by: TASH WAGONER on: 11/01/2024 01:55 PM Modules accepted: Orders documented in this encounter Plan of Treatment Upcoming Encounters Date Type Department Care Team (Late st Contact Info) Description 11/25/2024 3:00 PM EST Office Visit [facility] [address] [place] [address] Tash Wagoner DDS [address] [place] [address] 01/19/2025 3:00 PM EDT Office Visit [facility] [address] [place] [address] Coreen Beltran [address] [place] [address] Scheduled Orders Name Type Priority Associated Diagnoses Orde r Schedule DENTAL LAB DENTURES AND PARTIALS Dental Routine Ordered: 025 documented as of this encounter Procedures Procedure Name Priority Date/Time Associated Diagnosis Comments NO CHARGE PROCEDURE Routine 11/01/2024 10:00 AM EST documented in this encounter Visit Diagnoses Not on filedocumented in this encounter
--- OUTSIDE RECORDS SUMMARY | 2024-11-14 14:48 | XMS_ITS | Encounter Summary ---
Author Organization [employer] [facility] Address [address] [place] [address] Care Team Providers Care Automotive Tire Worker Name Role Phone Unavailable Primary Care Provider Unavailabl e Reason for Visit * Reason Comments Dentures Encounter Details Date Type Department Care Team ([facility] st Contact Info) Description 11/04/2024 11:00 AM EST Office Visit [facility] [address] [place] [address] Jairo Diaz DDS [address] [place], [place] [phone] Ill-fitting dentures (Primary Dx) Social History Tobacco Use Types Packs/Day Years Used Date Smoking Tobacco: Some Days Cigarettes Smokeless Tobacco: Never Alcohol Use Standard Drinks/Week Comments Defer 0 (1 standard drink = 0.6 oz pur e alcohol) Comments Unknown Sex and Gender Information Value Date Recorded Sex Assigned at Female 08/04/2022 10:31 AM EDT Legal Sex Female 10:31 AM EDT Gender Identity Choose not to disclose 10:31 AM EDT Sexual Orientation Choose not to disclose 2021 10:31 AM EDT documented as of this encounter Last Filed Vital Signs Vital Sign Reading Time Taken Comments Blood Pressure 114/68 11/04/2024 11:26 AM EST Pulse - - Temperature - - Respiratory Rate - - Oxygen Saturation - - Inhaled Oxygen Concentration - - Weight - - Height - - Body Mass Index - - documented in this encounter Progress Notes * Jairo Diaz DDS - 11/04/2024 11:00 AM EST Patient ID: Denice Woodson is a 54 y.o. adult. Time Out: Timeout Date: 11/04/24 (delivery of a reapaire upper partial), Timeout Time: 1127 Location: [facility] Tooth: Maxilla Procedure: Dentures Delivery repair, in courtesy for Dr. Hauser (absent today). Verified the above with patient, surgical assistant, and provider. Confirmed via patient's chart, intraorally and by radiographs. Tile Erector: not applicable Chief Complaint Patient presents with Dentures Medical Hx: Vitals: Blood pressure 114/68. Medications, Med Hx reviewed with patient and updated in chart. Consent Obtained: The risks, benefits, indications, potential complications, and alternatives were explained to the patient and informed consent was obtained with good understanding. Treatment Provided: Dental procedures in this visit [id number] - ADD TOOTH TO EXISTING PARTIAL DENTURE 4 (Completed) Service provider: Jairo Diaz DDS Billing provider: Jairo Diaz DDS [id number] - ADJUNCTIVE GENERAL SERVICES - PROFESSIONAL VISITS - CASE PRESENTATION, SUBSEQUENT TO DETAILED AND EXTENSIVE TREATMENT PLANNING (Completed) Service provider: Jairo Diaz DDS Billing provider: Jairo Diaz DDS Tried in denture(s) -Evaluated for comfort, fit, phonetics, and stability (f, v, s, th sounds; swallow, yawn, etc) -Evaluated for satisfactory esthetics. -Occlusion verified; adjustments made as necessary. Patient has received information sheet for denture care and expectations. Pt was provided with denture case and denture brush. NV: F/ U as needed with Dr. Hauser Legislative Director: Marija Munoz Dentist: Jairo Diaz DDS documented in this encounter Plan of Treatment Upcoming Encounters Date Type Department Care Team (Late st Contact Info) Description 11/25/2024 3:00 PM EST Office Visit [facility] [address] [place] [address] Tash Wagoner DDS [address] [place] [address] 01/19/2025 3:00 PM EDT Office Visit [facility] [address] [place], [place] [phone] [place] [address] documented as of this encounter Procedures Procedure Name Priority Date/Time Associated Diagnosis Comments ADJUNCTIVE GENERAL SERVICES - PROFESSIONAL VISITS - CASE PRESENTATION, SUBSEQUENT TO DETAILED AND EXTENSIVE TREATMENT PLANNING Routine 11/04/2024 11:00 AM EST 4 ADD TOOTH TO EXISTING PARTIAL DENTURE Routine 11/04/2024 11:00 AM EST documented in this encounter Visit Diagnoses Diagnosis Ill-fitting dentures- Primary documented in this encounter
== END 2024-11-14 15:09 | disposition home or self-care (01) ==
PROVIDERS: PCP Physician Assistant; Visit Provider Physician Assistant
DX: Z00.00 Encounter for general adult medical examination without abnormal findings (principal); E78.2 Mixed hyperlipidemia; F60.3 Borderline personality disorder; M21.612 Bunion of left foot; F41.1 Generalized anxiety disorder; F17.200 Nicotine dependence, unspecified, uncomplicated

== ENCOUNTER → 2024-11-14 13:37 | Outpatient (BNVA) | payer OTHER, SELFPAY | PROVIDERS: PCP Physician Assistant; Visit Provider Physician Assistant | DX: Z00.00 Encounter for general adult medical examination without abnormal findings (principal); E78.2 Mixed hyperlipidemia; F60.3 Borderline personality disorder; M21.612 Bunion of left foot; F41.1 Generalized anxiety disorder; F17.200 Nicotine dependence, unspecified, uncomplicated; Z71.6 Tobacco abuse counseling | CPT/HCPCS: 96127; 99396 ==

== ENCOUNTER 2025-06-28 12:34 | Outpatient (AMB) | payer OTHER, SELFPAY ==
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
[2025-06-28 13:07] VITALS: BP 116/98; PULSE 124; O2SAT 94
--- OUTSIDE RECORDS SUMMARY | 2025-06-28 15:07 | XMS_ITS | Clinical Summary ---
Author Organization [facility] Address [address] [place] [address] Care Team Providers Care Sports Intern Name Role Phone Unavailable Primary Care Provider [...] mg/actuation nasal spray Place into the nostril(s). Bent 4 mg (0.1 mL) into 1 nostril [...] 02/14/2016 Other specified anxiety disorders 02/14/2016 Immunizations Immunization Administration Dates Next Due Hep B, Unspecified [...]
--- OUTSIDE RECORDS SUMMARY | 2025-06-28 15:07 | XMS_ITS | Encounter Summary ---
Author Organization [facility] [facility] Address [address] [place] [address] Care Team Providers Care Public Information Director Name Role Phone Unavailable Primary Care Provider Unavailabl e Reason for Visit * Reason Onset Date Comments speak to provider 05/12/2024 Encounter Details Date Type Department Care Team (Late Contact Info) Description 05/12/[address] [facility] [address] [place] [address] Jairo Diaz DDS [address] [place] [address] speak to provider Social History Tobacco Use [...] Department Care Team (Late Contact Info) Description 08/04/2025 12:45 PM EDT Office Visit [facility] [address] [place] [address] Coreen Beltran [address] [place] [phone] documented as of this encounter Visit Diagnoses Not on filedocumented in this encounter
--- OUTSIDE RECORDS SUMMARY | 2025-06-28 15:07 | XMS_ITS | Clinical Summary ---
Author Organization [facility] Address [address] [place] [address] Care Team Providers Care Mix Mill Tender Name Role Phone Unavailable Primary Care Provider [...] (Shingrix) (1 of 2) 2020 COVID-19 Vaccine (1 - 2023-2 5 season) 2025 Influenza (#1) 2025 HPV Vaccine (No Doses Required) Completed Hep A Aged Out No longer eligi ble based on patient's age to complete this topic Hib Aged Out No longer eligi ble based on patient's age to complete this topic Meningococcal ACWY Aged Out No longer eligible based on patient's age to complete this topic Insurance [employer] P[employer]AN
--- OUTSIDE RECORDS SUMMARY | 2025-06-28 15:07 | XMS_ITS | Encounter Summary ---
Author Organization [employer] Address [address] [place] [address] Care Team Providers Care Scalp Treatment Specialist Name Role Phone Unavailable Primary Care Provider Unavailabl e Reason for Visit * Reason Onset Date Comments Appointment 01/02/2023 Encounter Details Date Type Department Care Team ([facility] st Contact Info) Description 01/02/2023 Telephone [facility] [address] [place] [address] [phone] Tash Wagoner, DDS [address] [facility] [address] [place], [place] [phone] Appointment Social History Tobacco Use Types Packs/Day [...] Care Team (Late st Contact Info) Description 08/04/2025 12:45 PM EDT Office Visit [facility] [address] [place] [address] Coreen Beltran [address] [place] [address] documented as of this encounter Visit Diagnoses Not on filedocumented in this encounter
--- OUTSIDE RECORDS SUMMARY | 2025-06-28 15:07 | XMS_ITS | Encounter Summary ---
Author Organization [employer] Address [address] [place] [address] Care Team Providers Care Precipitate Washer Name Role Phone Unavailable Primary Care Provider Unavailabl e Reason for Visit * Reason Onset Date Comments Appointment 02/05/2023 Encounter Details Date Type Department Care Team (Late st Contact Info) Description 02/05/2023 Telephone [facility] [address] [place] [address] Tash Wagoner, DDS [address] [place] [address] Appointment Social History Tobacco Use Types Packs/Day [...] getting swollen again but has appt on [id number] at a different office please advise. documented in this encounter Plan of Treatment Upcoming Encounters Date Type Department Care Team (Late st Contact Info) Description 08/04/2025 12:45 PM EDT Office Visit [facility] [address] [place] [address] Coreen Beltran [address] [place] [address] documented as of this encounter Visit Diagnoses Not on filedocumented in this encounter
--- OUTSIDE RECORDS SUMMARY | 2025-06-28 15:07 | XMS_ITS | Clinical Summary ---
Author Organization [facility] [facility] Address [address] [place] [address] Care Team Providers Care Ballast Regulator Operator Name Role Phone Unavailable Primary Care Provider [...] Unknown Other reaction(s): Other (See Comments) Mold. Trees. MOLD cough / nasal-- MOLD cough / nasal-- MOLD cough / nasal-- Other Other 06/18/2011 Other reaction(s): Other (See Comments) Mold. Trees. Pollen Extract 06/18/2011 Other Reaction(s): Other (See Comments) Mold. Trees. Sulfa Antibiotics Other,Unknown High 09/16/2010 Other reaction(s): Eosinphilic Colitis, Other (See Comments), Unknown Colitis flare up SULFA -- Other Other reaction(s): Eosinphilic Colitis, Other (See Comments), Unknown Colitis flare up SULFA -- Level of certainty: Very Certain Other Reaction(s): colitis Colitis flare up SULFA -- [...] Active Problems Problem Noted Date Diagnosed Date Staining (discoloration) of teeth 01/19/2025 Dental calculus 01/19/2025 Ill-fitting dentures 11/04/2024 Retained dental root 08/18/2024 [...] witnessed 12/21/01. See OMR for visit details. Immunizations Immunization Administration Dates Next Due Hep [...] Sign Reading Time Taken Comments Blood Pressure 138/80 01/19/2025 3:01 PM EDT Pulse 70 04/21/2023 3:08 PM EDT Temperature - - Respiratory Rate - - Oxygen Saturation - - Inhaled Oxygen Concentration - - Weight - - Height - - Body Mass Index - - Plan of Treatment Upcoming Encounters Date Type Department Care Team (Silvia larson Contact Info) Description 08/04/2025 12:45 PM EDT Office Visit [facility] [address] [place] [address] Coreen Beltran [address] [place] [address] Health Maintenance Due Date Last Done Comments CT Colonography 1970 Colonoscopy 1970 Colorectal Cancer Screening 1970 Depression Screening 1970 FIT DNA/Cologuard 1970 FIT 1970 FOBT 1970 HIV Screening 1970 Lipid Panel 1970 SDOH Screening 1970 Sigmoidoscopy 1970 Disability Screening 1970 Alcohol/Substance Use Screening 1982 Hepatitis C Screening 1988 Pap Smear 1991 Cervical Cancer Screening 2000 HPV/Cotest 2000 Mammogram 06/30/2016 06/30/2014 Hepatitis B Vaccines (3 of 3 - 19+ 3-dose series) 10/26/2016 05/26/2016, 04/25/2016 Dental Oral Exam 02/16/2025 08/18/2024 COVID-19 Vaccine (7 - Mixed Product risk 2023- season) 06/05/2025 08/18/2024, 08/19/2023, 01/29/2022, Additional history exists Influenza Vaccine (#1) 2025 Dental Prophylaxis 07/22/2025 01/19/2025, 04/21/2023 Dental X-Ray: Bitewings 08/19/2025 08/18/20 24, 04/21/2023, 01/02/2023 Tobacco Screening 01/19/2026 01/19/2025 Dental X-Ray: Full Mouth 08/19/2027 08/18/2024 DTaP/Tdap/Td Vaccines (2 - Td or Tdap) 03/30/2028 03/30/2018, 12/18/2006 RSV Patients and Patients Aged 60 years or older (1 - 1-dose 75+ series) 2045 Zoster Vaccines Completed 11/10/2021, 08/30/2021 Pneumococcal Vaccine: 50+ Years Completed 08/18/2024, 07/30/2018 HIB Vaccines Aged Out No longer eligi ble based on patient's age to complete this topic HPV Vaccines Aged Out No longer eligi ble based on patient's age to complete this topic Hepatitis A Vaccines Aged Out No long er eligible based on patient's age to complete this topic IPV Vaccines Aged Out No longer eligi ble based on patient's age to complete this topic Meningococcal B Vaccine Aged Out No l onger eligible based on patient's age to complete [...] Procedure Name Priority Date/Time Associated Diagnosis Comments PROPHYLAXIS - ADULT Routine 01/19/2025 3 :00 PM EDT Dental calculus PANORAMIC RADIOGRAPHIC IMAGE Routine 08/18/2024 1:00 PM EST Dental caries PERIODIC ORAL EVALUATION - ESTABLISHED PATIENT Routine 08/18/2024 1:00 PM EST BITEWINGS - 4 RADIOGRAPHIC IMAGES Routine 04/21/2023 3:00 PM EDT from Last 3 Months or Most Recently Relevant to Health Maintenance Insurance [place] AD[place]
--- OUTSIDE RECORDS SUMMARY | 2025-06-28 15:07 | XMS_ITS | Clinical Summary ---
Author Organization [facility] Address [address] [address] Phone Care Team Providers Care Crts Name Role Phone Oniel Jasmine Primary Care Provider + Allergies Active Allergy Reactions Criticality Noted Date Comments Amoxicillin Unknown 04/21/2014 Ativan (Lorazepam) 02/14/2016 Grass Pollen 10/29/2022 Lorazepam Rash Low 06/26/2016 Mold 04/29/2016 MOLD cough / nasal-- Other Other (See Comments) 06/18/2011 Mold. Trees. Propranolol 02/20/2025 Sulfa (Sulfonamide Antibiotics) Unknown,Eosinphilic Colitis High 04/21/2014 Medications clonazePAM (KLONOPIN) 1 MG tablet 1 mg 2 (two) times a day as needed. Active pantoprazole (PROTONIX) 40 MG tablet Take 40 mg by mouth daily. Active propranoloL (INDERAL LA) 60 mg 24 hr capsule Take 60 mg by mouth daily. Active carBAMazepine (CARBATROL) 300 mg 12 hr capsule Take 300 mg by mouth 2 (two) times a day. Active promethazine (PHENERGAN) 25 MG tablet 0 Active ondansetron (ZOFRAN-ODT) 4 MG disintegrating tablet 1 Active azaTHIOprine (IMURAN) 50 mg tablet 1 Active baclofen (LIORESAL) 10 MG tablet TAKE 1 TABLET BY MOUTH EVERY EVENING 30 tablet 5 12/25/202 1 Active diclofenac sodium (VOLTAREN) 1 % Gel APPLY 2 GRAMS TOPICALLY 4 TIMES A DAY 100 g 12 2 Active busPIRone (BUSPAR) 5 MG tablet 2 Active famotidine (PEPCID) 40 MG tablet 2 Active simvastatin (ZOCOR) 20 MG tablet 2 Active buPROPion (WELLBUTRIN SR) 150 MG SR 12 hr tablet 2 Active ROZEREM 8 mg tablet Take 8 mg by mouth nightly at bedtime. 4 Active azelastine (ASTELIN) 137 mcg (0.1 %) nasal spray 2 sprays by Nasal route 2 (two) times a day. 30 mL 5 02/24/20 26 Active fluticasone propionate (FLONASE) 50 mcg/actuation nasal spray 2 sprays by Nasal route daily. 15.8 mL 5 02/24/20 26 Active Family History Medical History Relation Comments Hiatal hernia Sister Relation Status Comments Mother Sister Social History Tobacco Use Types Packs/Day Years Used Date Smoking Tobacco: Every Day Cigarettes Smokeless Tobacco: Never Tobacco Cessation:Ready to Q uit: Not Asked; Counseling Given: Not Answered Comments:1 pack/week Alcohol Use Standard Drinks/Week Comments Yes 0 (1 standard drink = 0.6 oz pur e alcohol) once a week Education Answer Date Recorded Are you interested in more education? Not on keiry e 01/30/2023 Are you concerned about learning? Not on file 01/30/2023 No 01/30/2023 No 01/30/2023 Digital Access Answer Date Recorded No 03/01/2023 No 03/01/2023 Reliable internet access at home? Not on file 03/01/2023 Device with a working camera? Not on file Comments Unknown Sex and Gender Information Value Date Recorded Sex Assigned at Not on file Legal Sex Female 6:30 PM EST Gender Identity Female 06/14/2021 8:35 PM EDT Sexual Orientation Not on file Last Filed Vital Signs Vital Sign Reading Time Taken Comments Blood Pressure 121/76 02/14/2016 9:25 AM EDT Pulse 92 02/14/2016 12:01 PM EDT Temperature 36.7 C (98 F) 02/14/2016 1:11 AM EDT Respiratory Rate 18 02/14/2016 12:01 PM EDT Oxygen Saturation 96% 02/14/2016 9:25 AM EDT Inhaled Oxygen Concentration - - Weight 54.4 kg (120 lb) 10/23/2023 2:25 PM EST Height 154.9 cm (5' 1 ) 02/20/2025 11:03 AM EDT Body Mass Index 22.67 10/23/2023 2:25 PM EST Plan of Treatment Upcoming Encounters Date Type Department Care Team (Late st Contact Info) Description 02/21/2026 1:20 PM EDT Office Visit [facility] Otolaryngology General LW [address] [place] [address] Bartolo Crockett MD [address] [place] [address] [email or web address] Health Maintenance Due Date Last Done Comments CARBAMAZEPINE (TEGRETOL) LEVEL 1970 LIPID PANEL 1970 DEPRESSION SCREENING 1982 SMOKING Hx and SMOKELESS TOBACCO SCREENING 1983 HEPATITIS C SCREENING 1988 HIV ONE-TIME SCREENING (18-65 YEARS) 1988 ZOSTER VACCINES (1 of 2) 1989 PAP SMEAR 07/18/2006 07/18/2003, 08/05/2002, 03/17/2001, Additional history exists MAMMOGRAM 2010 COLOGUARD 2015 COLONOSCOPY 2015 COLORECTAL CANCER SCREENING 2015 FIT TEST 2015 FOBT 2015 SIGMOIDOSCOPY 2015 VIRTUAL COLONOSCOPY 2015 ALKALINE PHOSPHATASE LEVEL 02/13/2017 02/14/2016, CREATININE LEVEL 02/13/2017 02/14/2016, 07/2016, 04/02/2014 PNEUMOCOCCAL VACCINES (50+ years) (2 of 2 - PCV) 07/30/2019 07/30/2018 COVID-19 VACCINE (3 - Pfizer risk series) 03/18/2021 02/18/2021, 01/28/2021 INFLUENZA VACCINE (#1) 2025 Adult Td,Tdap Booster 03/30/2028 03/30/2018, 015 HEPATITIS A VACCINES Aged Out No long er eligible based on patient's age to complete this topic HIB VACCINES Aged Out No longer eligi ble based on patient's age to complete this topic MENINGOCOCCAL VACCINES (ACWY) Aged Out No longer eligible based on patient's age to complete this topic MENINGOCOCCAL VACCINES (B) Aged Out N o longer eligible based on patient's age to complete this topic Medical Devices Not on file Procedures Procedure Name Priority Date/Time Associated Diagnosis Comments LFTS (HEPATIC PANEL) STAT 02/14/2016 1:49 AM EDT BASIC METABOLIC PANEL STAT 02/14/2016 1:49 AM EDT PAP TEST Routine 07/18/2003 12:00 AM EDT from Last 3 Months or Most Recently Relevant to Health Maintenance Results * (ABNORMAL) LFTs (hepatic panel) (02/14/2016 1:49 AM EDT) ALBUMIN 3.7 3.5 - 4.8 g/dL [facility] TOTAL BILIRUBIN 0.3 0 - 1 mg/dL [facility] DIRECT BILIRUBIN <0.2 0 - 0.4 mg/dL [facility] ALKALINE PHOSPHATASE 47 27 - 129 U/L [facility] AST 17 6 - 40 U/L [facility] ALT 9(L) 10 - 49 U/L [facility] TOTAL PROTEIN 5.7 5.7 - 8.2 g/dL [facility] GLOBULIN 2.0 1.9 - 4.1 g/dL [facility] 02/14/2016 1:49 AM EDT 02/14/2016 1:51 AM EDT us Nanette Dozier MD LAB BLOOD ORDERAB LES Final Result [facility] [address] [place] [address] * (ABNORMAL) Basic metabolic panel (02/14/2016 1:49 AM EDT) SODIUM 144 136 - 145 mmol/L [facility] CHLORIDE 104 99 - 109 mmol/L [facility] POTASSIUM 3.9 3.5 - 5.2 mmol/L [facility] CO2 25 20 - 31 mmol/L [facility] BUN 10 9 - 23 mg/dL [facility] CREATININE 0.49(L) 0.5 - 1.3 mg/dL [facility] GLUCOSE 76 74 - 106 mg/dL [facility] CALCIUM 8.3(L) 8.7 - 10.4 mg/dL [facility] EGFR >60 mL/min/1.7 3m2 [facility] Comment:Abnormal if <60 mL/m in/1.73m2. If patient is -Moroccan, multiply the result by 1.21. ANION GAP 15 3 - 17 mmol/L [facility] Blood 02/14/2016 1:49 AM EDT 02/14/2016 1:51 AM EDT us Nanette Dozier MD LAB BLOOD ORDERAB LES Final Result [address] [address] * Pap Smear (07/18/2003 12:00 AM EDT) 07/18/2003 Narrative [facility] - 2003 10:27 PM EDT Accession Number: [id number] Report Status: Final Type: Cytology Cytology Report [id number] SCREENING PAP Accessioned On: 07/21/2003 RUBEN MATTA CLINICAL DATA: Routine.FINAL CYTOLOGIC DIAGNOSIS: CERVICAL PAP SMEAR: Satisfactory for evaluation. NEGATIVE FOR INTRAEPITHELIAL LESION OR MALIGNANCY. Cytolysis present. Inflammation. Reports to: DAVE PITTMAN M.D. us Conversion Provider Not In Sys CYTOLOGY ORDERABL ES Final Result [facility] [address] [place] [address] from Last 3 Months or Most Recently Relevant to Health Maintenance Insurance [place] [address] [address] [place] [address] [place] [address] [place] [address] [place] [address] [place] [address] [place] [address] [place] [address] [facility] [address] [place] [address] [id number] [place] [address] [phone] [place] [phone] [place] [phone] [place] [phone] [place] [phone] Care Teams Crts Relationship Specialty Start Date End Date Oniel Jasmine PA [address] [place], [place] PCP - General 05/01/21 Additional Source Comments The information contained in this document represents components of the legal health record. It is not the complete legal health record.[facility]
--- OUTSIDE RECORDS SUMMARY | 2025-06-28 15:07 | XMS_ITS | Encounter Summary ---
Author Organization [employer] [facility] Address [address] [facility] [address] [place] [address] Care Team Providers Care Sandwich Artist Name Role Phone Unavailable Primary Care Provider Unavailabl e Encounter Details Date Type Department Care Team (Latest Contact Info) Description 09/05/2021 Abstract [facility] CONVERSIONS Dental, Provider, DDS Social History Tobacco Use Types Packs/Day Years Used Date Smoking Tobacco: Never Assessed Comments Unknown Sex and Gender Information Value Date Recorded Sex Assigned at Female 08/04/2022 10:31 AM EDT Legal Sex Female 10:31 AM EDT Gender Identity Choose not to disclose 2 10:31 AM EDT Sexual Orientation Choose not to disclose 2021 10:31 AM EDT documented as of this encounter Plan of Treatment Upcoming Encounters Date Type Department Care Team (Late st Contact Info) Description 08/04/2025 12:45 PM EDT Office Visit [facility] ADULT DENTAL [address] [place] [address] Devin Coreen [address] [place] [address] documented as of this encounter Visit Diagnoses Not on filedocumented in this encounter
== END 2025-06-28 13:56 | disposition home or self-care (01) ==
LOC: HO.HGI 12:34
PROVIDERS: PCP Physician Assistant; Visit Provider Nurse Practitioner
DX: K21.9 Gastro-esophageal reflux disease without esophagitis (principal); K22.70 Barrett's esophagus without dysplasia; R74.01 Elevation of levels of liver transaminase levels; K51.20 Ulcerative (chronic) proctitis without complications; K58.2 Mixed irritable bowel syndrome
CPT/HCPCS: 99213

== ENCOUNTER → 2025-06-28 12:34 | Outpatient (BNVA) | payer OTHER, SELFPAY | PROVIDERS: PCP Physician Assistant; Visit Provider Nurse Practitioner | DX: K22.70 Barrett's esophagus without dysplasia (principal); K21.9 Gastro-esophageal reflux disease without esophagitis; R74.01 Elevation of levels of liver transaminase levels; K51.20 Ulcerative (chronic) proctitis without complications | CPT/HCPCS: 99212 ==